=== PATIENT | male | born 1985 | race Caucasian/White ===

== ENCOUNTER 2019-02-20 23:28 | Inpatient (IN) ==
[2019-02-20] MEDS ORDERED: 0.9 % Sodium Chloride 1,000 ML IVC ONE (23:36)
[2019-02-20] MEDS ORDERED: Acetaminophen 325 MG TABLET PO ONE (23:37)
[2019-02-20] MEDS ORDERED: Ketorolac 15 MG/ML VIAL IVP ONE (23:37)
--- NOTE | 2019-02-20 23:40 | Emergency Department Note ---
Disposition Clinical Impression: Dehydration Sepsis Qualifiers: Sepsis type: sepsis due to unspecified organism Qualified Code(s): A41.9 - Sepsis, unspecified organism Leukopenia Qualifiers: Leukopenia type: unspecified Qualified Code(s): D72.819 - Decreased white blood cell count, unspecified Fever Qualifiers: Fever type: unspecified Qualified Code(s): R50.9 - Fever, unspecified Disposition: Admitted As Inpatient Condition: Fair Referrals: Sunita Singh, ADDICTION TREATMENT COUNSELOR [Primary Care Provider] - Forms: ED Satisfaction Letter Time of Disposition: 02:30 Fever HPI - General Chief Complaint: ED Fever Stated Complaint: fever Time Seen by Provider: 02/20/19 23:35 Source: patient, EMS Mode of arrival: ambulatory Limitations: no limitations Nursing Notes Reviewed: Yes Vital Signs Reviewed: Yes - History of Present Illness HPI Narrative: 33-year-old male with a history of cerebral palsy presents for evaluation of fever or malaise. States symptom onset started yesterday. Patient presented via EMS. EMS stated the patient was satting 90-91% on room air. Patient's Noroxin home. Patient denies any chest pain or cough. Patient does state that he has been having dark urine over the past 24 hours. Does have prior history of UTIs. Patient reports some nausea with some abdominal cramping. Patient denies any chest pain. Subjective fevers at home. Denies any current antibiotics with states does have prior history of C. difficile. Mother at bedside confirm history. - Related Data Home Medications Medication Instructions Recorded Confirmed Escitalopram [Lexapro] 30 mg PO DAILY 01/13/17 01/13/17 Methadone 5 mg PO Q12HR 01/13/17 01/13/17 Omeprazole [PriLOSEC] 20 mg PO DAILY 01/13/17 01/13/17 Oxycodone HCl/Acetaminophen 1 each PO Q6H 01/13/17 01/13/17 [Percocet 5-325 mg Tablet] Testosterone [Androgel] 2.5 gm TD DAILY 01/13/17 01/13/17 Tizanidine HCl [Zanaflex] 4 mg PO TID 01/13/17 01/13/17 Allergies Allergy/AdvReac Type Severity Reaction Status Date / Time meperidine [From Demerol] Allergy Nausea Verified 02/20/19 23:36 morphine Allergy Hives Verified 02/20/19 23:36 Penicillins [PCN] Allergy Hives Verified 02/20/19 23:36 pregabalin [From Lyrica] Allergy Hives Verified 02/20/19 23:36 Sulfa (Sulfonamide Allergy Hives Verified 02/20/19 23:36 Antibiotics) All systems ED: reviewed and negative except as stated. Constitutional: Reports: fever Cardiovascular: Denies: chest pain Respiratory: Denies: cough, dyspnea Gastrointestinal: Reports: abdominal pain, nausea, vomiting. Denies: diarrhea Fever PMH - Past Medical History Medical history: Reports: asthma, seizures, other Psychiatric history: Reports: depression - Social History Smoking Status: Never smoker Alcohol use: Reports: none Drug use: Reports: none Physical Exam - General Limitations: no limitations, other General appearance: alert, in no apparent distress - Head Head exam: atraumatic - Eye Eye exam: Present: normal appearance, PERRL, EOMI. Absent: scleral icterus - ENT ENT exam: mucous membranes dry - Neck Neck exam: Present: normal inspection - Chest Chest inspection: Present: normal inspection, symmetric chest wall rise - Respiratory Respiratory exam: Present: other (Poor inspiratory effort). Absent: respiratory distress - Cardiovascular Cardiovascular exam: Present: normal rhythm, tachycardia. Absent: normal heart sounds - Abdominal Exam Abdominal exam: Present: soft, Non-Tender. Absent: distention, guarding, rebound - Extremities Exam Extremities exam: Present: other (Contractures of the extremities consistent with cerebral palsy.) - Expanded Lower Extremity Exam Neurovascular/Tendon exam: Present: normal capillary refill - Back Exam Back exam: Present: normal inspection - Neurological Exam Neurological exam: Present: alert, oriented X3, CN II-XII intact - Skin Skin exam: Present: warm, dry, intact, normal color Course Course Narrative: Patient does meet SIRS criteria concerns of infection either in the lungs or in the urine does have prior history of UTIs. Patient does not self catheter. Patient will get IV fluids and anti-inflammatories and evaluation. Disposition likely be admission. - Reevaluation(s) Reevaluation #1: Patient's HR is responding to IVFs Time: 00:34 Reevaluation #2: Given the patient's fever with neutropenia the patient was covered empirically with Rocephin. Patient's urine does not show any evidence of nitrates or esterase. Patient's urine will be cultured. Patient will also get a CT scan of the abdomen pelvis to find a potential source of the infection. Time: 01:11 Reevaluation #3: Patient seen and examined. Patient ED course as discussed. Patient as well as patient's family was notified of the patient's abnormal labs which included a low white count. Patient CT scan results reviewed shows urinary bladder thickening. Patient was treated empirically with Rocephin and urine culture pending. Patient's vitals improved during the ED course. Time: 02:29 Vital Signs Temperature 103.2 F H 02/20/19 23:30 Pulse Rate 130 02/20/19 23:30 Respiratory Rate 20 02/20/19 23:30 Blood Pressure 128/72 02/20/19 23:30 O2 Sat by Pulse Oximetry 95 02/20/19 23:30 Temperature 98.6 F 02/21/19 02:08 Pulse Rate 99 02/21/19 02:08 Respiratory Rate 16 02/21/19 02:08 Blood Pressure 108/67 02/21/19 02:08 O2 Sat by Pulse Oximetry 97 02/21/19 02:08 Oxygen Delivery Oxygen Delivery Nasal Cannula Fever - MDM Narrative Medical decision making narrative: Patient presented for concerns of fever. Patient had a couple potential source of the fever with initial abnormal vitals concerning for sepsis. Patient was tachycardic febrile. Patient describing dark clots rated urine. Patient's also requiring oxygen. Chest x-ray shows no acute findings. Patient also denies any cough. Patient's urine shows signs of dehydration without any evidence of UTI. Patient urine will be cultured. Given the patient's initial labs which showed severe neutropenia the patient was given an empiric dose of Rocephin as there was concerns for initial UTI. Patient's labs showed mild dehydration. Patient was given 30 mL per KG fluid bolus. Patient was also given phosphorus supplementation. Blood cultures obtained. Given no clear identifiable source a CT scan of the abdomen pelvis was obtained. - Lab Data Lab results reviewed: Yes I reviewed the patient's lab results. Result diagrams: 02/20/19 23:36 02/20/19 23:36 Lab Results 02/20/19 02/20/19 02/20/19 Range/Units 23:36 23:36 23:36 WBC 1.5 L (4.3-11.1) K/mcL RBC 4.62 (4.19-5.50) M/mcL Hgb 12.9 (12.9-16.9) g/dL Hct 38.6 (37.5-50.1) % MCV 83.5 (83.0-100.0) fL MCH 27.9 L (28.0-33.3) pg MCHC 33.4 (31.6-35.5) g/dL RDW 13.2 (11.5-14.5) % Plt Count 236 (140-400) K/mcL MPV 8.7 L (9.4-12.4) fL Immature Gran % 0.0 (0-4) % Seg Neutrophils % 4.8 % Lymphocytes % 27.2 % Monocytes % 67.3 % Eosinophils % 0.0 % Basophils % 0.7 % Neutrophils # 0.1 L (1.6-8.9) K/mcL Lymphocytes # 0.4 L (0.6-4.6) K/mcL Monocytes # 1.0 (0.0-1.3) K/mcL Eosinophils # 0.0 (0.0-0.6) K/mcL Basophils # 0.0 (0.0-0.2) K/mcL Reactive Lymphocytes Present A (Not Present) Platelet Estimate Normal (Normal) PT 13.2 H (9.4-12.1) Seconds INR 1.2 APTT 37.6 H (26.0-36.0) Seconds Sodium 135 L (136-145) mEq/L Potassium 3.8 (3.5-5.1) mEq/L Chloride 99 (98-107) mEq/L Carbon Dioxide 24 (23-29) mEq/L BUN 13 (6-20) mg/dL Creatinine 0.46 L (0.70-1.30) mg/dL Est GFR ( Amer) > 60 (> 60) Est GFR (Non-Af Amer) > 60 (> 60) BUN/Creatinine Ratio 28 H (6-26) Glucose 140 H (70-105) mg/dL Calculated Osmolality 282 (280-300) Lactic Acid (0.5-2.2) mmol/L Calcium 9.4 (8.6-10.3) mg/dL Phosphorus 1.1 L (2.7-4.5) mg/dL Magnesium 1.8 (1.6-2.6) mg/dL Total Bilirubin 1.4 H (0.3-1.0) mg/dL Direct Bilirubin 0.3 H (0.0-0.2) mg/dL Indirect Bilirubin 1.1 (0.0-1.2) mg/dL AST 15 (13-39) Units/L ALT 15 (7-52) Units/L Alkaline Phosphatase 67 (34-104) Units/L Troponin I < 0.03 (< 0.04) ng/mL Serum Total Protein 7.1 (6.4-8.9) g/dL Albumin 4.3 (3.5-5.7) g/dL Globulin 2.8 (2.4-3.5) g/dL Albumin/Globulin Ratio 1.5 (1.1-2.2) Lipase 10 L (11-82) Units/L Urine Color (Yellow) Urine Clarity (Clear) Urine pH (5.0-8.0) pH Units Ur Specific [place] (1.010-1.025) Urine Protein (Neg-Trace) mg/dL Urine Glucose (UA) (Normal) mg/dL Urine Ketones (Negative) mg/dL Urine Blood (Negative) Urine Nitrite (Negative) Urine Bilirubin (Negative) Urine Urobilinogen (Normal) mg/dL Ur Leukocyte Esterase (Negative) Urine Microscopic RBC (0-3) per hpf Urine Microscopic WBC (0-3) per hpf Ur Squamous Epith Cells (None-Few) per lpf Urine Bacteria (None-Few) per hpf Hyaline Casts (None-Few) per lpf Urine Yeast (None Seen) per hpf Ur Culture Indicated? (NO) 02/20/19 02/21/19 Range/Units 23:45 00:47 WBC (4.3-11.1) K/mcL RBC (4.19-5.50) M/mcL Hgb (12.9-16.9) g/dL Hct (37.5-50.1) % MCV (83.0-100.0) fL MCH (28.0-33.3) pg MCHC (31.6-35.5) g/dL RDW (11.5-14.5) % Plt Count (140-400) K/mcL MPV (9.4-12.4) fL Immature Gran % (0-4) % Seg Neutrophils % % Lymphocytes % % Monocytes % % Eosinophils % % Basophils % % Neutrophils # (1.6-8.9) K/mcL Lymphocytes # (0.6-4.6) K/mcL Monocytes # (0.0-1.3) K/mcL Eosinophils # (0.0-0.6) K/mcL Basophils # (0.0-0.2) K/mcL Reactive Lymphocytes (Not Present) Platelet Estimate (Normal) PT (9.4-12.1) Seconds INR APTT (26.0-36.0) Seconds Sodium (136-145) mEq/L Potassium (3.5-5.1) mEq/L Chloride (98-107) mEq/L Carbon Dioxide (23-29) mEq/L BUN (6-20) mg/dL Creatinine (0.70-1.30) mg/dL Est GFR ( Amer) (> 60) Est GFR (Non-Af Amer) (> 60) BUN/Creatinine Ratio (6-26) Glucose (70-105) mg/dL Calculated Osmolality (280-300) Lactic Acid 1.1 (0.5-2.2) mmol/L Calcium (8.6-10.3) mg/dL Phosphorus (2.7-4.5) mg/dL Magnesium (1.6-2.6) mg/dL Total Bilirubin (0.3-1.0) mg/dL Direct Bilirubin (0.0-0.2) mg/dL Indirect Bilirubin (0.0-1.2) mg/dL AST (13-39) Units/L ALT (7-52) Units/L Alkaline Phosphatase (34-104) Units/L Troponin I (< 0.04) ng/mL Serum Total Protein (6.4-8.9) g/dL Albumin (3.5-5.7) g/dL Globulin (2.4-3.5) g/dL Albumin/Globulin Ratio (1.1-2.2) Lipase (11-82) Units/L Urine Color Dark Yellow (Yellow) Urine Clarity Clear (Clear) Urine pH 5.5 (5.0-8.0) pH Units Ur Specific [place] > 1.030 H (1.010-1.025) Urine Protein 100 H (Neg-Trace) mg/dL Urine Glucose (UA) Normal (Normal) mg/dL Urine Ketones 80 H (Negative) mg/dL Urine Blood Moderate H (Negative) Urine Nitrite Negative (Negative) Urine Bilirubin Moderate H (Negative) Urine Urobilinogen Normal (Normal) mg/dL Ur Leukocyte Esterase Negative (Negative) Urine Microscopic RBC 5-15 H (0-3) per hpf Urine Microscopic WBC 0-3 (0-3) per hpf Ur Squamous Epith Cells Many H (None-Few) per lpf Urine Bacteria Few (None-Few) per hpf Hyaline Casts None Seen (None-Few) per lpf Urine Yeast Few H (None Seen) per hpf Ur Culture Indicated? YES A (NO) - Radiology Data Radiology results reviewed: Yes I reviewed the patient's radiology results. Chest X-Ray 02/21/19 00:00 IMPRESSION: No acute disease. D/ / Monroe Ahn MD / Monroe Ahn MD Interpreting Provider: Monroe Ahn MD Abdomen/Pelvis CT 02/21/19 01:07 IMPRESSION: 1. Possible seminal vesiculitis. 2. Diffuse bladder wall thickening may represent neurogenic bladder, cystitis, or outlet obstruction. D/ / Monroe Ahn MD / Monroe Ahn MD Interpreting Provider: Monroe Ahn MD - EKG Data EKG attestation: Yes I reviewed and interpreted this EKG. EKG shows normal: sinus rhythm Rate: tachycardia Rhythm: NSR [place]/QRS: normal Interpretation: no acute changes, nonspecific ST-T wave changes S.B.A.RSandra - S.B.ALuz Elena Situation: Demographics Background: Presenting Complaint Assessment: Vital Signs, Course and respsone to treatment, Patient/Family Exp ectation Recommendation: Barrier(s) to disposition, Recommendation based on pending studies, treatments, or consults S.B.A.RSandra Report Given to: Dr. Andree Wasserman Time: 02:13
--- NOTE | 2019-02-20 23:58 | Emergency Department Note ---
Disposition Clinical Impression: Dehydration Sepsis Qualifiers: Sepsis type: sepsis due to unspecified organism Qualified Code(s): A41.9 - Sepsis, unspecified organism Leukopenia Qualifiers: Leukopenia type: unspecified Qualified Code(s): D72.819 - Decreased white blood cell count, unspecified Fever Qualifiers: Fever type: unspecified Qualified Code(s): R50.9 - Fever, unspecified Disposition: Admitted As Inpatient Condition: Fair Referrals: Sunita Singh, SAMPLER PICKUP [Primary Care Provider] - Forms: ED Satisfaction Letter Time of Disposition: 02:30 General Adult HPI - General Chief complaint: ED Fever Stated complaint: fever Time Seen by Provider: 02/20/19 23:35 Source: patient, EMS Mode of arrival: ambulatory Limitations: no limitations, other Nursing Notes Reviewed: Yes Vital Signs Reviewed: Yes - History of Present Illness Pain Scale: 6 - Related Data Home Medications Medication Instructions Recorded Confirmed Escitalopram [Lexapro] 30 mg PO DAILY 01/13/17 02/21/19 Methadone 5 mg PO Q12HR 01/13/17 02/21/19 Omeprazole [PriLOSEC] 20 mg PO DAILY 01/13/17 02/21/19 Oxycodone HCl/Acetaminophen 1 each PO Q8H 01/13/17 02/21/19 [Percocet 5-325 mg Tablet] Testosterone [Androgel] 2.5 gm TD DAILY 01/13/17 01/13/17 Chlorzoxazone 500 mg PO Q6HR 02/21/19 02/21/19 Allergies Allergy/AdvReac Type Severity Reaction Status Date / Time meperidine [From Demerol] Allergy Nausea Verified 02/20/19 23:36 morphine Allergy Hives Verified 02/20/19 23:36 Penicillins [PCN] Allergy Hives Verified 02/20/19 23:36 pregabalin [From Lyrica] Allergy Hives Verified 02/20/19 23:36 Sulfa (Sulfonamide Allergy Hives Verified 02/20/19 23:36 Antibiotics) Constitutional: Reports: fever Cardiovascular: Denies: chest pain Respiratory: Denies: cough, dyspnea Gastrointestinal: Reports: abdominal pain, nausea, vomiting. Denies: diarrhea Past Medical History - Past Medical History Medical history: Reports: asthma, seizures, other Psychiatric history: Reports: depression - Social History Smoking Status: Never smoker Smokeless Tobacco Status: No Alcohol use: Reports: none Drug use: Reports: none Physical Exam - General Limitations: no limitations, other General appearance: alert, in no apparent distress Course Vital Signs Temperature 103.2 F H 02/20/19 23:30 Pulse Rate 130 02/20/19 23:30 Respiratory Rate 20 02/20/19 23:30 Blood Pressure 128/72 02/20/19 23:30 O2 Sat by Pulse Oximetry 95 02/20/19 23:30 Temperature 98.6 F 02/21/19 02:08 Pulse Rate 99 02/21/19 02:08 Respiratory Rate 16 02/21/19 02:08 Blood Pressure 108/67 02/21/19 02:08 O2 Sat by Pulse Oximetry 97 02/21/19 02:08 Oxygen Delivery Oxygen Delivery Nasal Cannula Medical Decision Making - Lab Data Lab results reviewed: Yes I reviewed the patient's lab results. Result diagrams: 02/20/19 23:36 02/20/19 23:36 Lab Results 02/20/19 02/20/19 02/20/19 Range/Units 23:36 23:36 23:36 WBC 1.5 L (4.3-11.1) K/mcL RBC 4.62 (4.19-5.50) M/mcL Hgb 12.9 (12.9-16.9) g/dL Hct 38.6 (37.5-50.1) % MCV 83.5 (83.0-100.0) fL MCH 27.9 L (28.0-33.3) pg MCHC 33.4 (31.6-35.5) g/dL RDW 13.2 (11.5-14.5) % Plt Count 236 (140-400) K/mcL MPV 8.7 L (9.4-12.4) fL Immature Gran % 0.0 (0-4) % Seg Neutrophils % 4.8 % Lymphocytes % 27.2 % Monocytes % 67.3 % Eosinophils % 0.0 % Basophils % 0.7 % Neutrophils # 0.1 L (1.6-8.9) K/mcL Lymphocytes # 0.4 L (0.6-4.6) K/mcL Monocytes # 1.0 (0.0-1.3) K/mcL Eosinophils # 0.0 (0.0-0.6) K/mcL Basophils # 0.0 (0.0-0.2) K/mcL Reactive Lymphocytes Present A (Not Present) Platelet Estimate Normal (Normal) PT 13.2 H (9.4-12.1) Seconds INR 1.2 APTT 37.6 H (26.0-36.0) Seconds Sodium 135 L (136-145) mEq/L Potassium 3.8 (3.5-5.1) mEq/L Chloride 99 (98-107) mEq/L Carbon Dioxide 24 (23-29) mEq/L BUN 13 (6-20) mg/dL Creatinine 0.46 L (0.70-1.30) mg/dL Est GFR ( Amer) > 60 (> 60) Est GFR (Non-Af Amer) > 60 (> 60) BUN/Creatinine Ratio 28 H (6-26) Glucose 140 H (70-105) mg/dL Calculated Osmolality 282 (280-300) Lactic Acid (0.5-2.2) mmol/L Calcium 9.4 (8.6-10.3) mg/dL Phosphorus 1.1 L (2.7-4.5) mg/dL Magnesium 1.8 (1.6-2.6) mg/dL Total Bilirubin 1.4 H (0.3-1.0) mg/dL Direct Bilirubin 0.3 H (0.0-0.2) mg/dL Indirect Bilirubin 1.1 (0.0-1.2) mg/dL AST 15 (13-39) Units/L ALT 15 (7-52) Units/L Alkaline Phosphatase 67 (34-104) Units/L Troponin I < 0.03 (< 0.04) ng/mL Serum Total Protein 7.1 (6.4-8.9) g/dL Albumin 4.3 (3.5-5.7) g/dL Globulin 2.8 (2.4-3.5) g/dL Albumin/Globulin Ratio 1.5 (1.1-2.2) Lipase 10 L (11-82) Units/L Urine Color (Yellow) Urine Clarity (Clear) Urine pH (5.0-8.0) pH Units Ur Specific [place] (1.010-1.025) Urine Protein (Neg-Trace) mg/dL Urine Glucose (UA) (Normal) mg/dL Urine Ketones (Negative) mg/dL Urine Blood (Negative) Urine Nitrite (Negative) Urine Bilirubin (Negative) Urine Urobilinogen (Normal) mg/dL Ur Leukocyte Esterase (Negative) Urine Microscopic RBC (0-3) per hpf Urine Microscopic WBC (0-3) per hpf Ur Squamous Epith Cells (None-Few) per lpf Urine Bacteria (None-Few) per hpf Hyaline Casts (None-Few) per lpf Urine Yeast (None Seen) per hpf Ur Culture Indicated? (NO) 02/20/19 02/21/19 Range/Units 23:45 00:47 WBC (4.3-11.1) K/mcL RBC (4.19-5.50) M/mcL Hgb (12.9-16.9) g/dL Hct (37.5-50.1) % MCV (83.0-100.0) fL MCH (28.0-33.3) pg MCHC (31.6-35.5) g/dL RDW (11.5-14.5) % Plt Count (140-400) K/mcL MPV (9.4-12.4) fL Immature Gran % (0-4) % Seg Neutrophils % % Lymphocytes % % Monocytes % % Eosinophils % % Basophils % % Neutrophils # (1.6-8.9) K/mcL Lymphocytes # (0.6-4.6) K/mcL Monocytes # (0.0-1.3) K/mcL Eosinophils # (0.0-0.6) K/mcL Basophils # (0.0-0.2) K/mcL Reactive Lymphocytes (Not Present) Platelet Estimate (Normal) PT (9.4-12.1) Seconds INR APTT (26.0-36.0) Seconds Sodium (136-145) mEq/L Potassium (3.5-5.1) mEq/L Chloride (98-107) mEq/L Carbon Dioxide (23-29) mEq/L BUN (6-20) mg/dL Creatinine (0.70-1.30) mg/dL Est GFR ( Amer) (> 60) Est GFR (Non-Af Amer) (> 60) BUN/Creatinine Ratio (6-26) Glucose (70-105) mg/dL Calculated Osmolality (280-300) Lactic Acid 1.1 (0.5-2.2) mmol/L Calcium (8.6-10.3) mg/dL Phosphorus (2.7-4.5) mg/dL Magnesium (1.6-2.6) mg/dL Total Bilirubin (0.3-1.0) mg/dL Direct Bilirubin (0.0-0.2) mg/dL Indirect Bilirubin (0.0-1.2) mg/dL AST (13-39) Units/L ALT (7-52) Units/L Alkaline Phosphatase (34-104) Units/L Troponin I (< 0.04) ng/mL Serum Total Protein (6.4-8.9) g/dL Albumin (3.5-5.7) g/dL Globulin (2.4-3.5) g/dL Albumin/Globulin Ratio (1.1-2.2) Lipase (11-82) Units/L Urine Color Dark Yellow (Yellow) Urine Clarity Clear (Clear) Urine pH 5.5 (5.0-8.0) pH Units Ur Specific [place] > 1.030 H (1.010-1.025) Urine Protein 100 H (Neg-Trace) mg/dL Urine Glucose (UA) Normal (Normal) mg/dL Urine Ketones 80 H (Negative) mg/dL Urine Blood Moderate H (Negative) Urine Nitrite Negative (Negative) Urine Bilirubin Moderate H (Negative) Urine Urobilinogen Normal (Normal) mg/dL Ur Leukocyte Esterase Negative (Negative) Urine Microscopic RBC 5-15 H (0-3) per hpf Urine Microscopic WBC 0-3 (0-3) per hpf Ur Squamous Epith Cells Many H (None-Few) per lpf Urine Bacteria Few (None-Few) per hpf Hyaline Casts None Seen (None-Few) per lpf Urine Yeast Few H (None Seen) per hpf Ur Culture Indicated? YES A (NO) - Radiology Data Radiology results reviewed: Yes I reviewed the patient's radiology results. Chest X-Ray 02/21/19 00:00 IMPRESSION: No acute disease. D/ / Monroe Ahn MD / Monroe Ahn MD Interpreting Provider: Monroe Ahn MD Abdomen/Pelvis CT 02/21/19 01:07 IMPRESSION: 1. Possible seminal vesiculitis. 2. Diffuse bladder wall thickening may represent neurogenic bladder, cystitis, or outlet obstruction. D/ / Monroe Ahn MD / Monroe Ahn MD Interpreting Provider: Monroe Ahn MD - EKG Data EKG #1 EKG attestation: Yes I reviewed and interpreted this EKG. EKG results narrative: EKG shows sinus tachycardia with ventricular rate of 123. No ST segment elevation or depression. No arrhythmia or ectopy. Critical Care Time Critical Care Time: Yes Total Critical Care Time: 40 Attestation: Critical care performed: Time is exclusive of separately billable procedures. Time includes: direct patient care, patient reassessment, coordination of patient care, interpretation of data (laboratory data, radiology data, and respiratory data), review of patient's medical records, medical consultation and documentation of patient care. Procedures included in critical care time: Procedures excluded from critical care time: Attestation Statement - Attestation Attestation: I, Andrea Ontiveros MD, personally evaluated this patient and discussed their management with the resident physician. I reviewed the resident's note and agree with the documented findings, medical decision making, and plan of care. I personally supervised and was present for the aviles/critical portions of the following procedures completed by the resident: EKG interpretation. 33-year-old male with history of cerebral palsy presents to the emergency department by EMS with a complaint of very dark urine for the past few days. Since yesterday he has felt like he had a fever with some chills and myalgias and generalized body aches. He complains of just not feeling well. He has had some nausea but no vomiting. Some back pain. Some mild abdominal pain. He states he feels like he may be constipated. He does admit to dysuria. No cough or difficulty breathing. He does complain of some headache. On examination patient is a thin male with contractures who is alert and oriented 3. There is no cyanosis or diaphoresis. He does feel hot to touch. Temperature was 103.2 orally. Breath sounds are clear and equal bilaterally. Heart regular with a moderate tachycardia. Abdomen is soft with present bowel sounds. Some mild diffuse tenderness. No guarding or rebound tenderness. EKG shows sinus tachycardia with ventricular rate of 123. No ST segment elevation or depression. No arrhythmia or ectopy. Labs reviewed. Markedly leukopenia with WBC of 1.5. Marked neutropenia. Platelets and hemoglobin normal. Lactic acid normal. Urinalysis is concentrated consistent with dehydration but no UTI. Chest x-ray negative. CT the abdomen and pelvis was obtained and shows thickening of the bladder wall and possible seminal vesiculitis. Blood cultures obtained. IV antibiotics initiated. The hospitalist, Dr. Candelario, was consulted and accepted admission of the patient.
[2019-02-21] MEDS ORDERED: 0.9 % Sodium Chloride 500 ML IVC ONE
[2019-02-21 00:11] LABS: Basophils % 0.7 %; Hemoglobin 12.9 g/dL (12.9-16.9); Mean Platelet Volume 8.7 fL (9.4-12.4); Red Cell Distribution Width 13.2 % (11.5-14.5)
[2019-02-21 00:14] LABS: Hematocrit 38.6 % (37.5-50.1); Lymphocytes # 0.4 K/mcL (0.6-4.6); Lymphocytes % 27.2 %; Mean Corpuscular HGB Conc 33.4 g/dL (31.6-35.5); Mean Corpuscular Hemoglobin 27.9 pg (28.0-33.3); Mean Corpuscular Volume 83.5 fL (83.0-100.0); Monocytes % 67.3 %; Neutrophils # 0.1 K/mcL (1.6-8.9); Platelet Count 236 K/mcL (140-400); Red Blood Count 4.62 M/mcL (4.19-5.50); Segmented Neutrophils % 4.8 %; White Blood Count 1.5 K/mcL (4.3-11.1)
[2019-02-21 00:18] LABS: INR 1.2; Prothrombin Time 13.2 Seconds (9.4-12.1)
[2019-02-21 00:21] LABS: Activated Partial Thrombo Time 37.6 Seconds (26.0-36.0)
[2019-02-21 00:30] LABS: Alanine Aminotransferase 15 Units/L (7-52); Albumin 4.3 g/dL (3.5-5.7); Albumin/Globulin Ratio 1.5 (1.1-2.2); Alkaline Phosphatase 67 Units/L (34-104); Aspartate Amino Transferase 15 Units/L (13-39); Bilirubin,Direct 0.3 mg/dL (0.0-0.2); Bilirubin,Indirect 1.1 mg/dL (0.0-1.2); Bilirubin,Total 1.4 mg/dL (0.3-1.0); Blood Urea Nitrogen 13 mg/dL (6-20); Calcium 9.4 mg/dL (8.6-10.3); Carbon Dioxide 24 mEq/L (23-29); Chloride 99 mEq/L (98-107); Globulin 2.8 g/dL (2.4-3.5); Glucose 140 mg/dL (70-105); Lipase 10 Units/L (11-82); Magnesium 1.8 mg/dL (1.6-2.6); Osmolality,Calculated 282 (280-300); Phosphorous 1.1 mg/dL (2.7-4.5); Potassium 3.8 mEq/L (3.5-5.1); Sodium 135 mEq/L (136-145); Total Protein 7.1 g/dL (6.4-8.9)
[2019-02-21 00:31] LABS: Troponin I < 0.03 ng/mL (< 0.04)
[2019-02-21 00:34] LABS: Platelet Estimate Normal (Normal); Reactive Lymphocytes Present (Not Present)
[2019-02-21] MEDS ORDERED: cefTRIAXone 1,000 MG in Water for inj. (sterile) 10 ML IVP ONE (00:36)
[2019-02-21 00:57] LABS: Bilirubin,Urine Moderate (Negative); Blood,Urine Moderate (Negative); Clarity,Urine Clear (Clear); Color,Urine Dark Yellow (Yellow); Glucose,Urine (UA) Normal (Normal); Ketones,Urine 80 mg/dL (Negative); Leukocyte Esterase,Urine Negative (Negative); Nitrite,Urine Negative (Negative); PH,Urine 5.5 pH Units (5.0-8.0); Protein,Urine 100 mg/dL (Neg-Trace); Specific Gravity,Urine > 1.030 (1.010-1.025); Urobilinogen,Urine Normal (Normal)
[2019-02-21 00:58] LABS: BUN/Creatinine Ratio 28 (6-26); eGFR For African Americans > 60 (> 60); eGFR For Non-African Americans > 60 (> 60)
[2019-02-21 00:59] LABS: Hyaline Casts,Urine None Seen per lpf (None-Few); Squamous Epithelial Cell,Urine Many per lpf (None-Few); WBC,Urine 0-3 per hpf (0-3)
[2019-02-21] MEDS ORDERED: Isovue-370 500 ML BOTTLE IVP ONE (01:07)
[2019-02-21 01:15] LABS: Bacteria,Urine Few per hpf (None-Few); Yeast,Urine Few per hpf (None Seen)
[2019-02-21] MEDS ORDERED: *HR* OxyCODONE/APAP 5/325 TABLET PO ONE (02:43)
[2019-02-21] MEDS ORDERED: Naloxone 0.4 MG/ML INJ IVP PRN (03:45)
--- NOTE | 2019-02-21 04:22 | Internal Med History&Physical ---
<Zay Thomson - Last Filed: 02/21/19 05:19> Date of Encounter: 02/21/19 Time of Encounter: 03:30 Internal Medicine - H&P: HPI Chief complaint: Fever Admitted From: Emergency Dept Plans for Post Hospital Care: Home History of present illness: Mr. Benites is a 33 year old male with PMHx of cerebral palsy, asthma, seizures, depression who presents to ED with complaint of fevers. Patient had a fever of 104.6 at home, checked by his mother. He admits to 3 days of dark urine with some burning on urination, nausea, and generalized body aches. Vitals in ED were significant for fever of 103.2, tachycardia of 130, tachypnea of 20, he was saturating at 95% on room air. Labs significant for leukopenia of 1.5, phosphorous of 1.1, and mildly elevated T. bili of 1.4. UA showed protein, blood, ketones, bilirubin, yeast, and few bacteria, but negative for leukocyte esterase and nitrites. CXR showed no acute process. Patient received CT ab/pelvis because source of infection wasn't clear, which showed bladder wall thickening (cystitis vs neurogenic bladder vs outlet obstruction) and possible seminal vesiculitis. EKG showed sinus tachycardia without ST elevation or depression. Patient had blood cultures x2 drawn and was given 1500 ml NS and a dose of rochephin. His vitals normalized to temp of 98.6, HR of 99, and RR of 16. Patient is resting comfortably on my exam and complains of some mild nausea. He denies vomiting. He admits to symptoms of dark urine, burning with urination, generalized body aches, mild headache over the past few days. His symptoms are improved. Patient denies chest pain, shortness of breath, cough, abdominal pain, numbness/tingling, changes in bowel habits. He denies sick contacts and did get his flu vaccine this year. He has had UTIs in the past, and admits to occasional difficulty with urination. He also has a history of C. diff, but is not currently on any antibiotics and is not experiencing any diarrhea. He denies history of smoking, alcohol, and drug use. Past Med Surg Social Fam HX - Past Medical History Medical history: asthma, seizures, other Additional medical history: CP Psychiatric history: depression - Past Surgical History Additional surgical history: spinal fusions, hip surgeries - Social History Smoking Status: Never smoker Smokeless Tobacco Status: No Alcohol use: none Drug use: none Internal Medicine - H&P: Meds Escitalopram [Lexapro] 30 mg PO DAILY 01/13/17 [History] Methadone 5 mg PO Q12HR 01/13/17 [History] Omeprazole [PriLOSEC] 20 mg PO DAILY 01/13/17 [History] Oxycodone HCl/Acetaminophen [Percocet 5-325 mg Tablet] 1 each PO Q8H 01/13/17 [History] Testosterone [Androgel] 2.5 gm TD DAILY 01/13/17 [History] Chlorzoxazone 500 mg PO Q6HR 02/21/19 [History] Allergy/AdvReac Type Severity Reaction Status Date / Time meperidine [From Demerol] Allergy Nausea Verified 02/20/19 23:36 morphine Allergy Hives Verified 02/20/19 23:36 Penicillins [PCN] Allergy Hives Verified 02/20/19 23:36 pregabalin [From Lyrica] Allergy Hives Verified 02/20/19 23:36 Sulfa (Sulfonamide Allergy Hives Verified 02/20/19 23:36 Antibiotics) All Systems PM: A 10-system review of systems was performed and is negative for pertinent findings except as documented above in the HPI. - Constitutional Vitals: Temp Pulse Resp BP Pulse Ox 98.8 F 99 16 110/65 97 02/21/19 03:13 02/21/19 02:08 02/21/19 03:13 02/21/19 03:13 02/21/19 02:08 General appearance: Present: cachectic, A&O X 3, pleasant, no acute distress Exam: Patient is resting in bed with several contractures of extremities, in no acute distress. - Eye Eye exam: Absent: conjunctival injection, scleral icterus - Respiratory Respiratory exam: Present: CTAB - Cardiovascular Cardiovascular exam: Present: tachycardia Additional comments: Regular rhythm - GI/Abdominal GI/Abdominal exam: Present: distended (mild), normal bowel sounds, soft, no peritoneal signs. Absent: tenderness - Extremities Exam Extremities exam: Present: normal capillary refill, warm, radial pulses palpable and symmetrical. Absent: mottling, pedal edema, tenderness Additional comments: diminished muscle tone with some contracture in UE and LE - Neurological Exam Neurological exam: Present: alert, oriented X3. Absent: facial droop - Psychiatric Psychiatric exam: Present: normal affect, normal mood - Skin Skin exam: Present: dry, warm Internal Med - H&P Results - Labs CBC & Chem 7: 02/20/19 23:36 02/20/19 23:36 Labs: Short CBC 02/20/19 Range/Units 23:36 WBC 1.5 L (4.3-11.1) K/mcL Hgb 12.9 (12.9-16.9) g/dL Hct 38.6 (37.5-50.1) % Plt Count 236 (140-400) K/mcL Neutrophils # 0.1 L (1.6-8.9) K/mcL BMP 02/20/19 23:36 Sodium 135 L Potassium 3.8 Chloride 99 Carbon Dioxide 24 BUN 13 Creatinine 0.46 L Glucose 140 H Calcium 9.4 Cardiac Enzymes 02/20/19 Range/Units 23:36 Troponin I < 0.03 (< 0.04) ng/mL Liver Function 02/20/19 Range/Units 23:36 Total Bilirubin 1.4 H (0.3-1.0) mg/dL Direct Bilirubin 0.3 H (0.0-0.2) mg/dL AST 15 (13-39) Units/L ALT 15 (7-52) Units/L Alkaline Phosphatase 67 (34-104) Units/L Albumin 4.3 (3.5-5.7) g/dL Urine 02/21/19 Range/Units 00:47 Urine Color Dark Yellow (Yellow) Urine Clarity Clear (Clear) Urine pH 5.5 (5.0-8.0) pH Units Ur Specific [place] > 1.030 H (1.010-1.025) Urine Protein 100 H (Neg-Trace) mg/dL Urine Glucose (UA) Normal (Normal) mg/dL - Impressions ITS Impressions Chest X-Ray 02/21/19 00:00 IMPRESSION: No acute disease. D/ / Monroe Ahn MD / Monroe Ahn MD Interpreting Provider: Monroe Ahn MD Abdomen/Pelvis CT 02/21/19 01:07 IMPRESSION: 1. Possible seminal vesiculitis. 2. Diffuse bladder wall thickening may represent neurogenic bladder, cystitis, or outlet obstruction. D/ / Monroe Ahn MD / Monroe Ahn MD Interpreting Provider: Monroe Ahn MD - Assessment and Plan (1) Sepsis Current Visit: Yes Status: Acute Assessment and plan: Fever of 103.2, HR 130, RR 20 WBC 1.5 Lactic acid normal EKG showed sinus tachycardia with no evidence of ST elevation or depression UA shows protein, ketones, blood, bilirubin, yeast, and few bacteria, with specific gravity >1.03 CXR shows no acute process Abdomen/pelvis CT shows bladder wall thickening (cystitis vs outlet obstruction vs neurogenic bladder) and possible seminal vesiculitis Received 1500 ml normal saline in ED and a dose of rocephin Vitals normalized to temp of 98.6, HR 99, RR 16 Procalcitonin Repeat CBC and BMP Flu swab Urine culture pending Blood cultures pending Maintenance fluids at 75 ml/hr for dehydration Continue rocephin daily, may need to broaden coverage if patient continues to spike fevers Qualifiers: Sepsis type: sepsis due to unspecified organism Qualified Code(s): A41.9 - Sepsis, unspecified organism (2) Complicated UTI (urinary tract infection) Current Visit: Yes Status: Acute Assessment and plan: Suspected with dysuria for past 3 days and fever of 103.2 Patient has history of UTIs in past and has neurogenic bladder CT abdomen/pelvis shows bladder wall thickening and possible seminal vesiculitis UA shows protein, ketones, blood, bilirubin, yeast, and few bacteria; however no leukocyte esterase or nitrites Urine culture pending Rocephin daily (3) Leukopenia Current Visit: Yes Status: Acute Assessment and plan: WBC of 1.5 Fever initially of 103.2 Patient with complaints of burning with urination, nausea, generalized weakness CXR unremarkable CT abdomen/pelvis showed bladder wall thickening and possible seminal vesiculitis Patient given dose of Rocephin since he met sepsis criteria Will repeat CBC in AM Unclear etiology at this time Qualifiers: Leukopenia type: unspecified Qualified Code(s): D72.819 - Decreased white blood cell count, unspecified (4) Nausea Current Visit: Yes Status: Acute Assessment and plan: Patient with nausea for the past 3 days, no vomiting or changes from baseline bowel habits CT abdomen pelvis shows bladder wall thickening and possible seminal vesiculitis Phenergan PRN (5) Dehydration Current Visit: Yes Status: Acute Assessment and plan: HR of 130 on arrival UA with specific gravity >1.03 Patient received 1.5 liters of fluid in ED, HR normalized to 99 Started maintenance fluid of 75 ml/hr (6) Cerebral palsy Current Visit: Yes Status: Chronic Assessment and plan: Resume home medications Qualifiers: Cerebral palsy type: unspecified type Qualified Code(s): G80.9 - Cerebral palsy, unspecified (7) GERD (gastroesophageal reflux disease) Current Visit: Yes Status: Chronic Assessment and plan: Continue home medications Qualifiers: Esophagitis presence: esophagitis presence not specified Qualified Code(s): K21.9 - Gastro-esophageal reflux disease without esophagitis (8) Depression Current Visit: Yes Status: Chronic Assessment and plan: Normal mood and affect on my exam, no suicidal ideation Continue home medication Qualifiers: Depression Type: unspecified Qualified Code(s): F32.9 - Major depressive disorder, single episode, unspecified (9) DVT prophylaxis Current Visit: Yes Status: Acute Assessment and plan: Subcutaneous heparin (10) Hypophosphatemia Current Visit: Yes Status: Acute Assessment and plan: Phosphorous 1.1 on admission Replaced in ED Repeat phosphorous in AM - Time Spent With Patient Total time spent is greater than 50% in coordination of care (as documented) at patient's floor/unit and/or counseling patient: <Salma Bourgeois A - Last Filed: 02/21/19 06:40> Date of Encounter: 02/21/19 Internal Medicine - H&P: HPI History of present illness: Mr. Benites is a 33 year old male All Systems PM: A 10-system review of systems was performed and is negative for pertinent findings except as documented above in the HPI. - Constitutional Vitals: Temp Pulse Resp BP Pulse Ox 98.5 F 102 18 105/66 93 02/21/19 04:20 02/21/19 04:20 02/21/19 04:20 02/21/19 04:20 02/21/19 04:20 Internal Med - H&P Results - Labs CBC & Chem 7: 02/21/19 05:03 02/21/19 05:03 Labs: Short CBC 02/20/19 02/21/19 Range/Units 23:36 05:03 WBC 1.5 L 2.2 L (4.3-11.1) K/mcL Hgb 12.9 11.8 L (12.9-16.9) g/dL Hct 38.6 34.8 L (37.5-50.1) % Plt Count 236 221 (140-400) K/mcL Neutrophils # 0.1 L 0.0 L (1.6-8.9) K/mcL BMP 02/20/19 02/21/19 23:36 05:03 Sodium 135 L 139 Potassium 3.8 3.6 Chloride 99 104 Carbon Dioxide 24 21 L BUN 13 9 Creatinine 0.46 L 0.47 L Glucose 140 H 136 H Calcium 9.4 8.5 L Cardiac Enzymes 02/20/19 Range/Units 23:36 Troponin I < 0.03 (< 0.04) ng/mL Liver Function 02/20/19 Range/Units 23:36 Total Bilirubin 1.4 H (0.3-1.0) mg/dL Direct Bilirubin 0.3 H (0.0-0.2) mg/dL AST 15 (13-39) Units/L ALT 15 (7-52) Units/L Alkaline Phosphatase 67 (34-104) Units/L Albumin 4.3 (3.5-5.7) g/dL Urine 02/21/19 Range/Units 00:47 Urine Color Dark Yellow (Yellow) Urine Clarity Clear (Clear) Urine pH 5.5 (5.0-8.0) pH Units Ur Specific [place] > 1.030 H (1.010-1.025) Urine Protein 100 H (Neg-Trace) mg/dL Urine Glucose (UA) Normal (Normal) mg/dL - Impressions ITS Impressions Chest X-Ray 02/21/19 00:00 IMPRESSION: No acute disease. D/ / Monroe Ahn MD / Monroe Ahn MD Interpreting Provider: Monroe Ahn MD Abdomen/Pelvis CT 02/21/19 01:07 IMPRESSION: 1. Possible seminal vesiculitis. 2. Diffuse bladder wall thickening may represent neurogenic bladder, cystitis, or outlet obstruction. D/ / Monroe Ahn MD / Monroe Ahn MD Interpreting Provider: Monroe Ahn MD - Assessment and Plan (1) Sepsis Current Visit: Yes Status: Acute Qualifiers: Sepsis type: sepsis due to unspecified organism Qualified Code(s): A41.9 - Sepsis, unspecified organism (2) Leukopenia Current Visit: Yes Status: Acute Qualifiers: Leukopenia type: unspecified Qualified Code(s): D72.819 - Decreased white blood cell count, unspecified (3) Dehydration Current Visit: Yes Status: Acute (4) Nausea Current Visit: Yes Status: Acute (5) DVT prophylaxis Current Visit: Yes Status: Acute (6) Depression Current Visit: Yes Status: Chronic Qualifiers: Depression Type: unspecified Qualified Code(s): F32.9 - Major depressive disorder, single episode, unspecified (7) Cerebral palsy Current Visit: Yes Status: Chronic Qualifiers: Cerebral palsy type: unspecified type Qualified Code(s): G80.9 - Cerebral palsy, unspecified (8) GERD (gastroesophageal reflux disease) Current Visit: Yes Status: Chronic Qualifiers: Esophagitis presence: esophagitis presence not specified Qualified Code(s): K21.9 - Gastro-esophageal reflux disease without esophagitis (9) Complicated UTI (urinary tract infection) Current Visit: Yes Status: Acute (10) Hypophosphatemia Current Visit: Yes Status: Acute - Time Spent With Patient Total time spent is greater than 50% in coordination of care (as documented) at patient's floor/unit and/or counseling patient: - Attending Attestation I performed a history and physical examination of the patient and discussed his management with the resident. I reviewed the resident's note and agree with the assessment and plan of care. In short patient is a pleasant 33-year-old male with a past medical history of cerebral palsy, asthma, seizures and depression who presented to the ED with complaint of fevers of 104.6 in the setting of dysuria and dark urine. Patient did meet sepsis criteria on presentation and was found to be tachycardic with a heart rate in the 130s, febrile with a temperature of 103.2 and leukopenic; but otherwise hemodynamically stable. UA was obtained which did not show any evidence of nitrites or leukocyte esterase. A CT of the abdomen and pelvis was performed which showed bladder wall thickening and possible seminal vesiculitis. On my assessment patient was lying in bed in no acute distress. He reported he was feeling much better. There was some suprapubic tenderness on palpation as well as evidence of skin irritation around patient's PEG tube site without evidence of purulence. No evidence of murmur. Patient did report a headache earlier which has resolved. Denies any neck stiffness or photophobia nor was there any neck stiffness on examination. Urine and blood cultures were obtained. We will continue Rocephin for UTI.
[2019-02-21] MEDS: *HR* OxyCODONE/APAP 5/325 TABLET PO SCH ×3 (04:57→19:14)
[2019-02-21] MEDS: *HR* Heparin 5,000 UNIT/ML VIAL SQ SCH ×2 (05:06→17:00)
[2019-02-21] MEDS: 0.9 % Sodium Chloride 1,000 ML IVC SCH ×2 (05:06→17:03)
[2019-02-21 05:18] LABS: Basophils % 0.5 %; Hematocrit 34.8 % (37.5-50.1); Hemoglobin 11.8 g/dL (12.9-16.9); Immature Granulocytes % 0.5 % (0-4); Lymphocytes # 0.5 K/mcL (0.6-4.6); Lymphocytes % 22.8 %; Mean Corpuscular HGB Conc 33.9 g/dL (31.6-35.5); Mean Corpuscular Hemoglobin 28.2 pg (28.0-33.3); Mean Corpuscular Volume 83.1 fL (83.0-100.0); Mean Platelet Volume 8.5 fL (9.4-12.4); Monocytes # 1.6 K/mcL (0.0-1.3); Monocytes % 74.4 %; Platelet Count 221 K/mcL (140-400); Red Blood Count 4.19 M/mcL (4.19-5.50); Segmented Neutrophils % 1.8 %; White Blood Count 2.2 K/mcL (4.3-11.1)
[2019-02-21 05:35] LABS: BUN/Creatinine Ratio 19 (6-26); Blood Urea Nitrogen 9 mg/dL (6-20); Calcium 8.5 mg/dL (8.6-10.3); Carbon Dioxide 21 mEq/L (23-29); Chloride 104 mEq/L (98-107); Glucose 136 mg/dL (70-105); Osmolality,Calculated 289 (280-300); Phosphorous 2.2 mg/dL (2.7-4.5); Potassium 3.6 mEq/L (3.5-5.1); Sodium 139 mEq/L (136-145); eGFR For African Americans > 60 (> 60); eGFR For Non-African Americans > 60 (> 60)
[2019-02-21 06:11] LABS: Platelet Estimate Normal (Normal)
[2019-02-21] MEDS: *HR* Methadone 5 MG TABLET PO SCH ×2 (06:13→17:00)
[2019-02-21] MEDS: (Chlorzoxazone 500 MG) PO SCH ×2 (07:00→10:33)
[2019-02-21] MEDS: *HR* Promethazine 25 MG/ML VIAL IVP PRN ×2 (11:00→20:33)
[2019-02-21] MEDS ORDERED: Fluconazole 100 MG TABLET PO ONE (11:11)
[2019-02-21] MEDS ORDERED: Milk and Molasses Enema 200 ML RC PRN (11:46)
--- NOTE | 2019-02-21 16:58 | Event Note ---
<Lexa Lynch R - Last Filed: 02/21/19 16:55> Date of Encounter: 02/21/19 Time of Encounter: 08:50 Mr. Benites is a 33 yo male with PMH of cerebral palsy and neurogenic bladder, presented with fever. He reports nausea, body aches, and dysuria as well. Denies other acute complaints at this time. No acute overnight events. He does report past history of C. diff, but has not been on antibiotics recently. Does report a hx of MRSA UTI several years ago. GEN: No acute distress, A&O3 HEAD: Atraumatic EYES: Pupils symmetric, sclera white, conjunctiva pink HEART: RRR, normal S1 and S2, no murmurs LUNGS: Clear to auscultation bilaterally, no wheezes, rhonchi, or crackles ABD: Soft, nontender, nondistended, bowel sounds present, G-tube present EXT: No edema noted, extremities with contractures, pulses 2/4 NEURO: Cooperative with exam PLAN: 1. Sepsis - Continue fluids and rocephin for UTI. Urine and blood cultures pending. UA also shows yeast, so will give dose of diflucan today and consider continuing pending culture results. If he develops another fever may consider broadening coverage 2. UTI - continue rocephin 3. Leukopenia - 2/2 to sepsis 4. Nausea - reports phenergan helps, but his legs get aggitated unless he has benadryl with it, so will dose with benadryl 5. Cerebral Palsy - resume home meds 6. Tube feedings - uses tube feedings at night - nutrition consult for tube feedings 7. Constipation - miralax and enemas PRN <Jere Diana A - Last Filed: 02/21/19 17:31> Date of Encounter: 02/21/19 Mr Benites was admitted earlier today for sepsis presumed related to UTI. He is slowly improving. Exam Resting comfortably Mucus membranes dry Not tachycardic Agree with assessment and plan as above and in H&P
--- NOTE | 2019-02-21 17:33 | Electrocardiograph Report ---
[address] [address] Test Date: 2019-02-20 Pat Name: Luis Benites Department: EXAM2 Room: 2NE28 Gender: M Sciences Dean: : 1985 Requested By: Yann Peralta Order Number: [id number] Reading MD: Casey Duron Measurements Intervals [place] Rate: 123 P: 86 TX: 121 QRS: 86 QRSD: 101 T: 49 QT: 302 QTc: 432 Interpretive Statements Sinus tachycardia Baseline wander in lead(s) II aVR Electronically Signed On 02-21-2019 17:32:36 EDT by Casey Duron
[2019-02-21] MEDS: cefTRIAXone 1,000 MG in Water for inj. (sterile) 10 ML IVP SCH (20:32)
[2019-02-21] MEDS: (Chlorzoxazone 500 MG) PO PRN (20:47)
[2019-02-21] MEDS: Lactobacillus 1 EACH CAP.SPRINK PO SCH (23:51)
[2019-02-22] MEDS: *HR* OxyCODONE/APAP 5/325 TABLET PO SCH ×3 (03:07→21:01)
[2019-02-22 04:45] LABS: Basophils % 0.9 %; Eosinophils % 0.9 %; Hematocrit 33.5 % (37.5-50.1); Hemoglobin 11.1 g/dL (12.9-16.9); Immature Granulocytes % 0.5 % (0-4); Lymphocytes # 0.8 K/mcL (0.6-4.6); Lymphocytes % 38.4 %; Mean Corpuscular HGB Conc 33.1 g/dL (31.6-35.5); Mean Corpuscular Volume 84.6 fL (83.0-100.0); Mean Platelet Volume 8.9 fL (9.4-12.4); Monocytes # 1.2 K/mcL (0.0-1.3); Monocytes % 57.3 %; Platelet Count 216 K/mcL (140-400); Red Blood Count 3.96 M/mcL (4.19-5.50); Red Cell Distribution Width 13.2 % (11.5-14.5); White Blood Count 2.1 K/mcL (4.3-11.1)
[2019-02-22 05:07] LABS: BUN/Creatinine Ratio 16 (6-26); Blood Urea Nitrogen 7 mg/dL (6-20); Calcium 7.9 mg/dL (8.6-10.3); Carbon Dioxide 26 mEq/L (23-29); Chloride 108 mEq/L (98-107); Glucose 119 mg/dL (70-105); Osmolality,Calculated 287 (280-300); Potassium 3.7 mEq/L (3.5-5.1); Sodium 139 mEq/L (136-145); eGFR For African Americans > 60 (> 60); eGFR For Non-African Americans > 60 (> 60)
[2019-02-22 06:27] LABS: Platelet Estimate Normal (Normal)
[2019-02-22] MEDS: *HR* Promethazine 25 MG/ML VIAL IVP PRN ×4 (06:33→18:14)
[2019-02-22] MEDS: *HR* Heparin 5,000 UNIT/ML VIAL SQ SCH ×2 (06:46→21:01)
[2019-02-22] MEDS: *HR* Methadone 5 MG TABLET PO SCH ×2 (06:46→18:13)
[2019-02-22] MEDS: Lactobacillus 1 EACH CAP.SPRINK PO SCH (08:56)
[2019-02-22] MEDS: 0.9 % Sodium Chloride 1,000 ML IVC SCH ×2 (08:59→21:00)
--- NOTE | 2019-02-22 17:37 | Internal Med Progress Note ---
Hospitalist Progress Note - Encounter Date of Encounter: 02/22/19 Time of Encounter: 12:30 - Subjective Interval History: Mr Benites is currently admitted for sepsis related to presumed UTI. He remains moderate to high risk due to potential for worsening clinical status. Mr Benites had fever again today. No CP or SOB. Had some loose stool with hx of C diff - does not feel that is recurring. No abd pain. - Exam Vitals: Temp Pulse Resp BP Pulse Ox 100.6 F H 110 18 100/54 93 02/22/19 15:44 02/22/19 15:44 02/22/19 15:44 02/22/19 15:44 02/22/19 06:53 Exam: General: Alert and oriented. Comfortable at this time. Skin: Normal color, no rash, H: Normocephalic. EENT: EOMI, pupils equal. Mucus membranes moist. Cardiovascular: Normal S1 & S2, no murmurs . Tachycardic Lungs: Normal breath sounds, no wheezes or crackles. Abdomen: Soft, non-tender,Normal bowel sounds. Extremities: No deformity, Neurological: Normal cognition Pulses: radial pulses normal +2. Rest of the physical exam is non contributory - Assessment and Plan (1) UTI (urinary tract infection) Current Visit: Yes Status: Acute Assessment and Plan: Urine culture negative thus far. Will continue IV abx the same. (2) Sepsis Current Visit: Yes Status: Acute Assessment and Plan: No overt source of infection at this time. Procalcitonin mildly elevated. Continue IV abx and supportive care. (3) Leukopenia Current Visit: Yes Status: Acute Assessment and Plan: WBC stable from yesterday. (4) Dehydration Current Visit: Yes Status: Acute Assessment and Plan: Continues to have tachycardia. Still appears to have some dehydration. Will continue fluids today. (5) Nausea Current Visit: Yes Status: Resolved (6) DVT prophylaxis Current Visit: Yes Status: Acute Assessment and Plan: Subcutaneous heparin (7) Depression Current Visit: Yes Status: Chronic Assessment and Plan: Continue home medication (8) Cerebral palsy Current Visit: Yes Status: Chronic Assessment and Plan: home medications (9) GERD (gastroesophageal reflux disease) Current Visit: Yes Status: Chronic Assessment and Plan: Continue home medications (10) Hypophosphatemia Current Visit: Yes Status: Acute Assessment and Plan: Resolved - Time Spent with Patient Total time spent is greater than 50% in coordination of care (as documented) at patient's floor/unit and/or counseling patient: Internal Medicine: Result - Labs CBC & Chem 7: 02/22/19 04:09 02/22/19 04:09 Labs: Short CBC 02/22/19 Range/Units 04:09 WBC 2.1 L (4.3-11.1) K/mcL Hgb 11.1 L (12.9-16.9) g/dL Hct 33.5 L (37.5-50.1) % Plt Count 216 (140-400) K/mcL Neutrophils # 0.0 L (1.6-8.9) K/mcL BMP 02/22/19 04:09 Sodium 139 Potassium 3.7 Chloride 108 H Carbon Dioxide 26 BUN 7 Creatinine 0.45 L Glucose 119 H Calcium 7.9 L - ABG Interpretation ABG results: PT/INR, D-dimer PT 13.2 Seconds (9.4-12.1) H 02/20/19 23:36 Consult Discharge Plan - Plan Referrals: Sunita Singh, [employer] [Primary Care Provider] - (1) UTI (urinary tract infection) Qualifiers: Urinary tract infection type: acute cystitis Hematuria presence: with hematuria Qualified Code(s): N30.01 - Acute cystitis with hematuria (2) Sepsis Qualifiers: Sepsis type: sepsis due to unspecified organism Qualified Code(s): A41.9 - Sepsis, unspecified organism (3) Leukopenia Qualifiers: Leukopenia type: unspecified Qualified Code(s): D72.819 - Decreased white blood cell count, unspecified (7) Depression Qualifiers: Depression Type: unspecified Qualified Code(s): F32.9 - Major depressive dis order, single episode, unspecified (8) Cerebral palsy Qualifiers: Cerebral palsy type: unspecified type Qualified Code(s): G80.9 - Cerebral pal sy, unspecified (9) GERD (gastroesophageal reflux disease) Qualifiers: Esophagitis presence: esophagitis presence not specified Qualified Code(s): K21.9 - Gastro-esophageal reflux disease without esophagitis
[2019-02-22] MEDS: (Chlorzoxazone 500 MG) PO PRN (18:48)
[2019-02-22] MEDS: cefTRIAXone 1,000 MG in Water for inj. (sterile) 10 ML IVP SCH (21:00)
[2019-02-23] MEDS: *HR* Promethazine 25 MG/ML VIAL IVP PRN ×3 (00:37→17:01)
[2019-02-23] MEDS: (Chlorzoxazone 500 MG) PO PRN ×4 (01:10→21:43)
[2019-02-23] MEDS: *HR* OxyCODONE/APAP 5/325 TABLET PO SCH ×3 (03:29→21:41)
[2019-02-23] MEDS: *HR* Heparin 5,000 UNIT/ML VIAL SQ SCH ×2 (06:11→17:01)
[2019-02-23] MEDS: *HR* Methadone 5 MG TABLET PO SCH ×2 (06:12→17:00)
[2019-02-23 07:45] LABS: Hematocrit 33.8 % (37.5-50.1); Mean Corpuscular HGB Conc 32.5 g/dL (31.6-35.5); Mean Corpuscular Hemoglobin 27.3 pg (28.0-33.3); Mean Corpuscular Volume 83.9 fL (83.0-100.0); Monocytes # 1.6 K/mcL (0.0-1.3); Nucleated Red Blood Cells 0.6 /100 WBC (0); Platelet Count 236 K/mcL (140-400); Red Blood Count 4.03 M/mcL (4.19-5.50); Red Cell Distribution Width 13.2 % (11.5-14.5); White Blood Count 3.1 K/mcL (4.3-11.1)
[2019-02-23] MEDS: Lactobacillus 1 EACH CAP.SPRINK PO SCH (07:47)
[2019-02-23 08:02] LABS: BUN/Creatinine Ratio 14 (6-26); Blood Urea Nitrogen 6 mg/dL (6-20); Calcium 8.1 mg/dL (8.6-10.3); Carbon Dioxide 25 mEq/L (23-29); Chloride 107 mEq/L (98-107); Glucose 102 mg/dL (70-105); Osmolality,Calculated 284 (280-300); Potassium 3.8 mEq/L (3.5-5.1); Sodium 138 mEq/L (136-145); eGFR For African Americans > 60 (> 60); eGFR For Non-African Americans > 60 (> 60)
[2019-02-23 08:16] LABS: Lymphocytes # 1.2 K/mcL (0.6-4.6); Neutrophils # 0.3 K/mcL (1.6-8.9)
[2019-02-23 08:17] LABS: Platelet Estimate Normal (Normal)
[2019-02-23] MEDS: 0.9 % Sodium Chloride 1,000 ML IVC SCH ×2 (11:35→21:53)
--- NOTE | 2019-02-23 16:13 | Internal Med Progress Note ---
Hospitalist Progress Note - Encounter Date of Encounter: 02/23/19 Time of Encounter: 12:10 - Subjective Interval History: Mr Benites is currently admitted for sepsis presumed due to UTI. He remains moderate to high risk due to potential for worsening clinical status. Mr Benites is resting comfortably at this time. No fever since yesterday. No CP or SOB. Remains tachycardic and is worse with exertion. No GI issues at this time. - Exam Vitals: Temp Pulse Resp BP Pulse Ox 98.3 F 116 18 113/89 93 02/23/19 15:43 02/23/19 15:43 02/23/19 15:43 02/23/19 15:43 02/23/19 15:43 Exam: General: Alert and oriented. Comfortable at this time. Skin: Normal color, no rash, H: Normocephalic. EENT: EOMI, pupils equal. Mucus membranes moist. Cardiovascular: Normal S1 & S2, no murmurs. Continues to be tachycardic - sinus tach on monitor. Lungs: Normal breath sounds, no wheezes or crackles. Abdomen: Soft, non-tender,Normal bowel sounds. Extremities: No deformity, No edema Neurological: Normal cognition Pulses: radial pulses normal +2. Rest of the physical exam is non contributory - Assessment and Plan (1) Sinus tachycardia Current Visit: Yes Status: Acute Assessment and Plan: Pt remains very tachycardic with exertion. No CP or SOB. Will check echo. Consider beta shubham. (2) UTI (urinary tract infection) Current Visit: Yes Status: Acute Assessment and Plan: Urine culture is negative. Has been receiving IV abx and now is afebrile. (3) Sepsis Current Visit: Yes Status: Acute Assessment and Plan: Clinically slowly improving. Remains tachycardic. Will continue IV fluids. (4) Leukopenia Current Visit: Yes Status: Acute Assessment and Plan: WBC is improving. (5) Dehydration Current Visit: Yes Status: Acute Assessment and Plan: Continues to have tachycardia. Continue fluids today. (6) Nausea Current Visit: Yes Status: Resolved Assessment and Plan: Appears to be improving. Supportive care. (7) DVT prophylaxis Current Visit: Yes Status: Acute Assessment and Plan: Subcutaneous heparin (8) Depression Current Visit: Yes Status: Chronic Assessment and Plan: Continue home medication (9) Cerebral palsy Current Visit: Yes Status: Chronic Assessment and Plan: home medications (10) GERD (gastroesophageal reflux disease) Current Visit: Yes Status: Chronic Assessment and Plan: Continue home medications - Time Spent with Patient Total time spent is greater than 50% in coordination of care (as documented) at patient's floor/unit and/or counseling patient: Internal Medicine: Result - Labs CBC & Chem 7: 02/23/19 07:21 02/23/19 07:21 Labs: Short CBC 02/23/19 Range/Units 07:21 WBC 3.1 L (4.3-11.1) K/mcL Hgb 11.0 L (12.9-16.9) g/dL Hct 33.8 L (37.5-50.1) % Plt Count 236 (140-400) K/mcL Neutrophils # 0.3 L (1.6-8.9) K/mcL BMP 02/23/19 07:21 Sodium 138 Potassium 3.8 Chloride 107 Carbon Dioxide 25 BUN 6 Creatinine 0.44 L Glucose 102 Calcium 8.1 L - ABG Interpretation ABG results: PT/INR, D-dimer PT 13.2 Seconds (9.4-12.1) H 02/20/19 23:36 Consult Discharge Plan - Plan Referrals: Sunita Singh, [facility]ER [Primary Care Provider] - (2) UTI (urinary tract infection) Qualifiers: Urinary tract infection type: acute cystitis Hematuria presence: with hematuria Qualified Code(s): N30.01 - Acute cystitis with hematuria (3) Sepsis Qualifiers: Sepsis type: sepsis due to unspecified organism Qualified Code(s): A41.9 - Sepsis, unspecified organism (4) Leukopenia Qualifiers: Leukopenia type: unspecified Qualified Code(s): D72.819 - Decreased white bl ood cell count, unspecified (8) Depression Qualifiers: Depression Type: unspecified Qualified Code(s): F32.9 - Major depressive disorder, single episode, unspecified (9) Cerebral palsy Qualifiers: Cerebral palsy type: unspecified type Qualified Code(s): G80.9 - Cerebral palsy, unspecified (10) GERD (gastroesophageal reflux disease) Qualifiers: Esophagitis presence: esophagitis presence not specified Qualified Code(s): K21.9 - Gastro-esophageal reflux disease without esophagitis
[2019-02-23] MEDS: cefTRIAXone 1,000 MG in Water for inj. (sterile) 10 ML IVP SCH (21:40)
[2019-02-23] MEDS: Magic Mouthwash 10 ML UD Cup PO SCH (23:07)
[2019-02-23] MEDS: Nystatin POWDER 30 GM BOTTLE TP SCH (23:08)
[2019-02-24] MEDS: *HR* Promethazine 25 MG/ML VIAL IVP PRN ×4 (03:32→23:26)
[2019-02-24] MEDS: (Chlorzoxazone 500 MG) PO PRN (03:37)
[2019-02-24] MEDS: *HR* OxyCODONE/APAP 5/325 TABLET PO SCH ×3 (04:11→20:31)
[2019-02-24] MEDS: *HR* Heparin 5,000 UNIT/ML VIAL SQ SCH (06:26)
[2019-02-24] MEDS: *HR* Methadone 5 MG TABLET PO SCH ×2 (06:27→17:50)
[2019-02-24] MEDS: Magic Mouthwash 10 ML UD Cup PO SCH ×4 (07:52→17:00)
--- NOTE | 2019-02-24 09:29 | Internal Med Progress Note ---
<Lexa Lynch Sami - Last Filed: 02/24/19 13:49> Hospitalist Progress Note - Encounter Date of Encounter: 02/24/19 Time of Encounter: 08:35 - Subjective Interval History: Patient seen and examined the bedside. He reports that he is having worsening muscle spasm. He states that he will get these from time to time due to his cerebral palsy, but this time it is worse and more constant. He states that they are sometimes associated with pain. However he denies significant pain at this time. Continues to remain afebrile, but tachycardia continues. Does admit to SOB but only during a muscle spasm. He denies CP, abdominal pain, or difficulty with bowels. - Exam Vitals: Temp Pulse Resp BP Pulse Ox 97.5 F L 116 18 127/86 97 02/24/19 08:09 02/24/19 08:09 02/24/19 08:09 02/24/19 08:09 02/24/19 08:09 Exam: GEN: Mild distress with current muscle spams, A&O3 HEAD: Atraumatic EYES: Pupils symmetric, sclera white, conjunctiva pink HEART: Regular, tachycardia, normal S1 and S2, no murmurs LUNGS: Clear to auscultation bilaterally, no wheezes, rhonchi, or crackles ABD: Soft, nontender, nondistended, bowel sounds present, G-tube present EXT: No edema noted, extremities with contractures, pulses 2/4 : right groin with mild erythema NEURO: Cooperative with exam - Assessment and Plan (1) Sinus tachycardia Current Visit: Yes Status: Acute Assessment and Plan: Persistent tachycardia, but without chest pain Does report some dyspnea, but only during a muscle spasm Will check echo and d-dimer (patient immobile, on testosterone replacement) - D-dimer elevated - ordering chest CTA Consider beta shubham (2) UTI (urinary tract infection) Current Visit: Yes Status: Acute Assessment and Plan: UCx negative - has received Rocephin, now afebrile Also had seminal vesicle inflammation on CT (3) Sepsis Current Visit: Yes Status: Acute Assessment and Plan: Clinically improving, but remains tachycardic No clear source with UCx negative and BCx NGTD Continue IV fluids and antibiotics (4) Leukopenia Current Visit: Yes Status: Acute Assessment and Plan: Improving (5) Dehydration Current Visit: Yes Status: Acute Assessment and Plan: Persistent tachycardia - continue IV fluids (6) Nausea Current Visit: Yes Status: Resolved Assessment and Plan: Improving - continue current regimen (7) Cerebral palsy Current Visit: Yes Status: Chronic Assessment and Plan: Continue home medications Does report intermittent muscle spasms - currently worse than normal - will give cyclobenzaprine - magnesium normal, will check ionized calcium & phos (8) GERD (gastroesophageal reflux disease) Current Visit: Yes Status: Chronic Assessment and Plan: Continue home medications DVT Prophylaxis: SQ heparin - Time Spent with Patient Total time spent is greater than 50% in coordination of care (as documented) at patient's floor/unit and/or counseling patient: Internal Medicine: Result - Labs CBC & Chem 7: 02/24/19 12:33 02/24/19 12:33 - ABG Interpretation ABG results: PT/INR, D-dimer PT 13.2 Seconds (9.4-12.1) H 02/20/19 23:36 Consult Discharge Plan - Plan Referrals: Sunita Singh, [employer] [Primary Care Provider] - <Jere Diana - Last Filed: 02/24/19 15:07> Hospitalist Progress Note - Encounter Date of Encounter: 02/24/19 - Exam Vitals: Temp Pulse Resp BP Pulse Ox 97.7 F 98 18 128/91 100 02/24/19 12:00 02/24/19 12:30 02/24/19 12:00 02/24/19 12:00 02/24/19 12:00 - Assessment and Plan (1) Sinus tachycardia Current Visit: Yes Status: Acute (2) UTI (urinary tract infection) Current Visit: Yes Status: Acute (3) Sepsis Current Visit: Yes Status: Acute (4) Leukopenia Current Visit: Yes Status: Acute (5) Dehydration Current Visit: Yes Status: Acute (6) Nausea Current Visit: Yes Status: Resolved (7) DVT prophylaxis Current Visit: Yes Status: Acute (8) Depression Current Visit: Yes Status: Chronic (9) Cerebral palsy Current Visit: Yes Status: Chronic (10) GERD (gastroesophageal reflux disease) Current Visit: Yes Status: Chronic (11) Muscle spasm Current Visit: Yes Status: Acute - Time Spent with Patient Total time spent is greater than 50% in coordination of care (as documented) at patient's floor/unit and/or counseling patient: Internal Medicine: Result - Labs CBC & Chem 7: 02/24/19 12:33 02/24/19 12:33 Labs: Short CBC 02/24/19 Range/Units 12:33 WBC 2.9 L (4.3-11.1) K/mcL Hgb 11.5 L (12.9-16.9) g/dL Hct 35.6 L (37.5-50.1) % Plt Count 274 (140-400) K/mcL Neutrophils # 0.6 L (1.6-8.9) K/mcL BMP 02/24/19 12:33 Sodium 143 Potassium 3.8 Chloride 109 H Carbon Dioxide 24 BUN 5 L Creatinine 0.39 L Glucose 98 Calcium 8.6 - ABG Interpretation ABG results: PT/INR, D-dimer PT 13.2 Seconds (9.4-12.1) H 02/20/19 23:36 773 ng/mLFEU (0-500) H 02/24/19 12:33 - Attending Attestation I examined this patient and my medical decision-making was reviewed with the Resident Physician on 02/24/19. I agree with the documented findings, disposition and treatment plan as described except to the extent set forth below. Mr Benites is currently admitted for sepsis from presumed UTI. He remains moderate to high risk due to potential for worsening clinical status. Mr Benites has been having muscle spasms today. Happen occasionally but this one is worse. No SOB. Heart rate still somewhat elevated but maybe lower. No fever. Exam alert Uncomfortable due to spasm Mucus membranes dry Heart reg and not tachy now. No wheeze abd soft Diffuse muscle spasms No edema I/P 1. Muscle spasm - given Flexeril 2. Sepsis - unsure source but suspect urine despite neg culture. 3. Tachycardia - persist. D dimer ordered and if elevated CTA to be done. Echo ordered Further diagnoses and plan as above. <Lexa Lynch - Last Filed: 02/24/19 13:49> (2) UTI (urinary tract infection) Qualifiers: Urinary tract infection type: acute cystitis Hematuria presence: with hematuria Qualified Code(s): N30.01 - Acute cystitis with hematuria (3) Sepsis Qualifiers: Sepsis type: sepsis due to unspecified organism Qualified Code(s): A41.9 - Sepsis, unspecified organism (4) Leukopenia Qualifiers: Leukopenia type: unspecified Qualified Code(s): D72.819 - Decreased white blood cell count, unspecified (7) Cerebral palsy Qualifiers: Cerebral palsy type: unspecified type Qualified Code(s): G80.9 - Cerebral palsy, unspecified (8) GERD (gastroesophageal reflux disease) Qualifiers: Esophagitis presence: esophagitis presence not specified Qualified Code(s): K21.9 - Gastro-esophageal reflux disease without esophagitis <Jere Diana A - Last Filed: 02/24/19 15:07> (2) UTI (urinary tract infection) Qualifiers: Urinary tract infection type: acute cystitis Hematuria presence: with hematuria Qualified Code(s): N30.01 - Acute cystitis with hematuria (3) Sepsis Qualifiers: Sepsis type: sepsis due to unspecified organism Qualified Code(s): A41.9 - Sepsis, unspecified organism (4) Leukopenia Qualifiers: Leukopenia type: unspecified Qualified Code(s): D72.819 - Decreased white blood cell count, unspecified (8) Depression Qualifiers: Depression Type: unspecified Qualified Code(s): F32.9 - Major depressive disorder, single episode, unspecified (9) Cerebral palsy Qualifiers: Cerebral palsy type: unspecified type Qualified Code(s): G80.9 - Cerebral palsy, unspecified (10) GERD (gastroesophageal reflux disease) Qualifiers: Esophagitis presence: esophagitis presence not specified Qualified Code(s): K21.9 - Gastro-esophageal reflux disease without esophagitis
[2019-02-24] MEDS: TESTOSTERONE TP SCH (09:30)
[2019-02-24] MEDS: 0.9 % Sodium Chloride 1,000 ML IVC SCH (09:54)
[2019-02-24] MEDS: Lactobacillus 1 EACH CAP.SPRINK PO SCH (10:05)
[2019-02-24] MEDS: Nystatin POWDER 30 GM BOTTLE TP SCH ×3 (10:09→23:18)
[2019-02-24 13:09] LABS: Eosinophils # 0.1 K/mcL (0.0-0.6); Hematocrit 35.6 % (37.5-50.1); Hemoglobin 11.5 g/dL (12.9-16.9); Mean Corpuscular HGB Conc 32.3 g/dL (31.6-35.5); Mean Corpuscular Hemoglobin 27.4 pg (28.0-33.3); Mean Platelet Volume 8.8 fL (9.4-12.4); Monocytes # 0.9 K/mcL (0.0-1.3); Platelet Count 274 K/mcL (140-400); Red Blood Count 4.19 M/mcL (4.19-5.50); Red Cell Distribution Width 13.6 % (11.5-14.5); White Blood Count 2.9 K/mcL (4.3-11.1)
[2019-02-24 13:10] LABS: VBG Ionized Calcium 1.18 mmol/L (1.15-1.35)
[2019-02-24 13:30] LABS: BUN/Creatinine Ratio 13 (6-26); Blood Urea Nitrogen 5 mg/dL (6-20); Calcium 8.6 mg/dL (8.6-10.3); Carbon Dioxide 24 mEq/L (23-29); Chloride 109 mEq/L (98-107); Glucose 98 mg/dL (70-105); Osmolality,Calculated 293 (280-300); Phosphorous 2.2 mg/dL (2.7-4.5); Potassium 3.8 mEq/L (3.5-5.1); Sodium 143 mEq/L (136-145); eGFR For African Americans > 60 (> 60); eGFR For Non-African Americans > 60 (> 60)
[2019-02-24] MEDS ORDERED: Isovue-370 500 ML BOTTLE IVP ONE (13:41)
[2019-02-24] MEDS ORDERED: *HR* Heparin 5,000 UNIT/ML VIAL SQ SCH (14:00)
[2019-02-24 14:08] LABS: Neutrophils # 0.6 K/mcL (1.6-8.9); Platelet Estimate Normal (Normal); Reactive Lymphocytes Present (Not Present)
[2019-02-24] MEDS: cefTRIAXone 1,000 MG in Water for inj. (sterile) 10 ML IVP SCH (20:31)
[2019-02-25] MEDS: *HR* Heparin 5,000 UNIT/ML VIAL SQ SCH ×3 (02:15→18:22)
[2019-02-25] MEDS: 0.9 % Sodium Chloride 1,000 ML IVC SCH ×2 (02:16→18:37)
[2019-02-25] MEDS: *HR* OxyCODONE/APAP 5/325 TABLET PO SCH ×2 (03:54→11:49)
[2019-02-25] MEDS: *HR* Methadone 5 MG TABLET PO SCH ×2 (06:33→18:22)
[2019-02-25] MEDS: *HR* Promethazine 25 MG/ML VIAL IVP PRN ×3 (07:22→21:25)
[2019-02-25] MEDS: Magic Mouthwash 10 ML UD Cup PO SCH ×3 (09:05→18:22)
[2019-02-25] MEDS: TESTOSTERONE TP SCH (09:07)
[2019-02-25] MEDS: Nystatin POWDER 30 GM BOTTLE TP SCH ×3 (09:08→21:40)
[2019-02-25] MEDS: Lactobacillus 1 EACH CAP.SPRINK PO SCH (09:15)
[2019-02-25 10:35] LABS: Eosinophils # 0.1 K/mcL (0.0-0.6); Hematocrit 37.1 % (37.5-50.1); Hemoglobin 11.7 g/dL (12.9-16.9); Mean Corpuscular HGB Conc 31.5 g/dL (31.6-35.5); Mean Corpuscular Volume 85.7 fL (83.0-100.0); Platelet Count 341 K/mcL (140-400); Red Blood Count 4.33 M/mcL (4.19-5.50); Red Cell Distribution Width 13.8 % (11.5-14.5); White Blood Count 4.1 K/mcL (4.3-11.1)
[2019-02-25 11:15] LABS: Alanine Aminotransferase 69 Units/L (7-52); Albumin 3.4 g/dL (3.5-5.7); Albumin/Globulin Ratio 1.3 (1.1-2.2); Alkaline Phosphatase 62 Units/L (34-104); Aspartate Amino Transferase 84 Units/L (13-39); BUN/Creatinine Ratio 14 (6-26); Bilirubin,Total 0.4 mg/dL (0.3-1.0); Blood Urea Nitrogen 5 mg/dL (6-20); Calcium 8.6 mg/dL (8.6-10.3); Carbon Dioxide 25 mEq/L (23-29); Chloride 108 mEq/L (98-107); Globulin 2.6 g/dL (2.4-3.5); Glucose 90 mg/dL (70-105); Lactate Dehydrogenase 253 Units/L (140-271); Neutrophils # 1.6 K/mcL (1.6-8.9); Osmolality,Calculated 289 (280-300); Platelet Estimate Normal (Normal); Potassium 3.7 mEq/L (3.5-5.1); Sodium 141 mEq/L (136-145); eGFR For African Americans > 60 (> 60); eGFR For Non-African Americans > 60 (> 60)
[2019-02-25 15:30] LABS: Hepatitis B Surface Antigen Nonreactive (Nonreactive)
--- NOTE | 2019-02-25 15:38 | Oncology Inp Consult Note ---
<Shannan Galicia L - Last Filed: 02/25/19 17:30> Date of Encounter: 02/25/19 Time of Encounter: 14:00 Assessment and Plan (1) Leukopenia Status: Acute Assessment and plan: Admitted with sepsis and suspected UTI Since admission, he has been treated with Rocephin for suspected UTI, urine culture has since resulted and is unrevealing. Blood cultures from 02/20 are NGTD. He has been afebrile since 02/22. No prior blood counts to compare to, no other cytopenias Blood smear shows left shift and toxic changes LDH normal Procal 0.26 Slightly elevated AST/ALT, hepatitis panel negative Plan: Leukopenia appears to be resolving, although was initially severe with ANC genesis of 0.0 on 02/21 and 02/22 with associated metamyelocytes, myelocytes and promyelocytes noted on peripheral blood Exact source of infection is somewhat unknown as urine culture was negative, his presentation is suspicious for underlying viral process, mononucleosis reflex testing has been ordered Suspect his leukopenia is related to underlying infectious process of potential viral source, we will continue to follow to monitor AM CBC Qualifiers: Leukopenia type: unspecified Qualified Code(s): D72.819 - Decreased white blood cell count, unspecified - Data of Consult Requesting Physician: Jere Diana DO Primary Care Provider: Sunita Singh CNP - Consult Narrative Reason for consult: Leukopenia History of present illness: Mr. Benites is a 33 year old male with past medical history significant for cerebral palsy, asthma, seizures, depression who presents to ED with complaint of fever as high as 104.6, burning with urination and generalized body aches. Vitals on presentation revealed a fever of 103.2, tachycardia of 130, tachypnea of 20, he was saturating at 95% on room air. He was also noted to be leukopenic on presentation with WBC 1.5 and ANC of 100, Hgb and Plt count normal. UA showed protein, blood, ketones, bilirubin, yeast, and few bacteria, but negative for leukocyte esterase and nitrites. CXR showed no acute process. Patient received CT ab/pelvis which had shown bladder wall thickening (cystitis vs neurogenic bladder vs outlet obstruction) and possible seminal vesiculitis. Admitted for sepsis and suspected UTI. Patient endorses some generalized weakness and fatigue just prior to presentation. Appetite has been poor over the past week. He has also noticed a lesion to his lip as well as genital region that is now healing. He denies prior sore throat, SOB, chest pain, night sweats, lymphadenopathy, abdominal pain, nausea, vomiting, diarrhea. Past Med Surg Social Fam HX - Past Medical History Medical history: asthma, seizures, other Additional medical history: CP, last seizure twenty plus years ago Psychiatric history: depression - Past Surgical History Additional surgical history: spinal fusions, hip surgeries - Social History Smoking Status: Never smoker Smokeless Tobacco Status: No Alcohol use: none Drug use: none Medications and Allergies Escitalopram [Lexapro] 20 mg PO DAILY 01/13/17 [History] Methadone 5 mg PO Q12HR 01/13/17 [History] Omeprazole [PriLOSEC] 20 mg PO DAILY 01/13/17 [History] Oxycodone HCl/Acetaminophen [Percocet 5-325 mg Tablet] 1 tab PO Q8H PRN 01/13/17 [History] Chlorzoxazone 500 mg PO QID 02/21/19 [History] Docusate Sodium/Benzocaine [Enemeez Plus Mini Enema] 1 cap RC Q48H 02/21/19 [History] Doxylamine Succinate [Unisom] 50 mg PO HS 02/21/19 [History] NALOXONE 4 MG Nasal Otis [Narcan] 1 spray NS AD PRN 02/21/19 [History] Testosterone [Androgel] 1 packet TP DAILY 02/21/19 [History] Allergy/AdvReac Type Severity Reaction Status Date / Time meperidine [From Demerol] Allergy Nausea Verified 02/20/19 23:36 morphine Allergy Hives Verified 02/20/19 23:36 Penicillins [PCN] Allergy Hives Verified 02/20/19 23:36 pregabalin [From Lyrica] Allergy Hives Verified 02/20/19 23:36 Sulfa (Sulfonamide Allergy Hives Verified 02/20/19 23:36 Antibiotics) Constitutional: Present: anorexia, chills, fatigue, fever(s), headache(s), night sweats, weight loss Eyes: Absent: change in vision Nose, mouth and throat: Present: mouth lesions. Absent: dysphagia, odynophagia Cardiovascular: Absent: chest pain Respiratory: Absent: cough, dyspnea Gastrointestinal: Absent: abdominal pain, diarrhea, nausea, vomiting Genitourinary: Present: as per HPI, dysuria Musculoskeletal: Present: muscle weakness Integumentary: Absent: rash, wounds Neurological: Present: as per HPI Psychiatric: Present: as per HPI Endocrine: Present: fatigue Hematologic/Lymphatic: Present: as per HPI. Absent: lymphadenopathy Consult Discharge Plan - Plan Referrals: Sunita Singh CNP [Primary Care Provider] - Inpatient Charges Provider: Dr. Deven Molina <Ran Molina - Last Filed: 02/25/19 20:50> Date of Encounter: 02/25/19 - Data of Consult Requesting Physician: Orlando Murray Primary Care Provider: Sunita Singh CNP - Attending Attestation I have seen and examined Mr. Benites and agree with the assessment and plan put in place by Ms. Galicia. He initially presented with high fever and upon admission was found to have leukopenia with neutropenia. Pro-calcitonin was elevated as well. Clinically, he is improving. His neutropenia has resolved. He is clinically feeling better as well. On exam, he has evidence of resolving oral aphthous ulcers as well as genital ulcers. In addition, he is found to have a mild transaminitis. Lungs are clear to auscultation. Heart regular rate and rhythm. Regarding his cytopenias, this is likely secondary to underlying infection, likely a viral process. The presence of aphthous ulcers, high-grade fever and transaminitis with support this diagnosis. Repeat CBC in the morning. EBV testing has been requested. We will arrange for follow-up and to 3 weeks m y office with a CBC as well to ensure resolution. Inpatient Charges Provider: Dr. Deven Molina Consult - Inpatient: [id number]
[2019-02-25 16:01] LABS: Hepatitis C Virus Antibody Nonreactive (Nonreactive)
[2019-02-25 16:02] LABS: Hepatitis B Core IgM Nonreactive (Nonreactive)
[2019-02-25 16:04] LABS: Hepatitis A Antibody IgM Nonreactive (Nonreactive)
--- NOTE | 2019-02-25 18:07 | Internal Med Progress Note ---
<Lexa Lynch Sami - Last Filed: 02/25/19 18:03> Hospitalist Progress Note - Encounter Date of Encounter: 02/25/19 Time of Encounter: 13:14 - Subjective Interval History: Patient seen and examined at bedside. Reports the muscle spasms are not as bad today. He denies significant pain or dyspnea. Continues to remain afebrile. Some intermittent tachycardia but overall improving. Denies other symptoms. No acute overnight events. - Exam Vitals: Temp Pulse Resp BP Pulse Ox 98.1 F 91 18 115/86 98 02/25/19 17:32 02/25/19 17:32 02/25/19 17:32 02/25/19 17:32 02/25/19 17:32 Exam: GEN: Mild distress with current muscle spams, A&O3 HEAD: Atraumatic EYES: Pupils symmetric, sclera white, conjunctiva pink HEART: RRR, normal S1 and S2, no murmurs LUNGS: Clear to auscultation bilaterally, no wheezes, rhonchi, or crackles ABD: Soft, nontender, nondistended, bowel sounds present, G-tube present EXT: No edema noted, extremities with contractures, pulses 2/4 : right groin with mild erythema NEURO: Cooperative with exam - Assessment and Plan (1) Leukopenia Current Visit: Yes Status: Acute Assessment and Plan: Improving, up to 4.1 today Smear with low count, but normal morphology Hem/Onc consulted - recommend mono spot (2) Sinus tachycardia Current Visit: Yes Status: Acute Assessment and Plan: Improving overall, but still with some intermittent tachycardia CTA negative for PE or pneumonia (3) UTI (urinary tract infection) Current Visit: Yes Status: Acute Assessment and Plan: UCx negative - has received Rocephin, now afebrile Also had seminal vesicle inflammation on CT, so this may be a source of infection - at this time plan to continue for 10 days of antibiotics (4) Sepsis Current Visit: Yes Status: Acute Assessment and Plan: Clinically improving, but remains with intermittent tachycardic UCx negative and BCx NGTD Mild elevation of AST/ALT - hepatitis panel negative Resp Inf Panel pending Continue IV fluids and antibiotics at this time (5) Dehydration Current Visit: Yes Status: Acute Assessment and Plan: Improving (6) Nausea Current Visit: Yes Status: Resolved Assessment and Plan: Improving - continue current regimen (7) Cerebral palsy Current Visit: Yes Status: Chronic Assessment and Plan: Continue home medications Muscle spasms are improved today (8) GERD (gastroesophageal reflux disease) Current Visit: Yes Status: Chronic Assessment and Plan: Continue home medications DVT Prophylaxis: SQ heparin - Time Spent with Patient Total time spent is greater than 50% in coordination of care (as documented) at patient's floor/unit and/or counseling patient: Internal Medicine: Result - Labs CBC & Chem 7: 02/25/19 09:11 02/25/19 09:11 Labs: Short CBC 02/25/19 Range/Units 09:11 WBC 4.1 L (4.3-11.1) K/mcL Hgb 11.7 L (12.9-16.9) g/dL Hct 37.1 L (37.5-50.1) % Plt Count 341 (140-400) K/mcL Neutrophils # 1.6 (1.6-8.9) K/mcL BMP 02/25/19 09:11 Sodium 141 Potassium 3.7 Chloride 108 H Carbon Dioxide 25 BUN 5 L Creatinine 0.36 L Glucose 90 Calcium 8.6 Liver Function 02/25/19 Range/Units 09:11 Total Bilirubin 0.4 (0.3-1.0) mg/dL AST 84 H (13-39) Units/L ALT 69 H (7-52) Units/L Alkaline Phosphatase 62 (34-104) Units/L Albumin 3.4 L (3.5-5.7) g/dL - ABG Interpretation ABG results: PT/INR, D-dimer PT 13.2 Seconds (9.4-12.1) H 02/20/19 23:36 773 ng/mLFEU (0-500) H 02/24/19 12:33 - Impressions Impressions Echocardiogram 02/25/19 08:39 Impressions: LVEF 60-65%. Normal LV chamber size, wall thickness and function. Normal left ventricular diastolic function. Normal right ventricular structure and function. No evidence of pulmonary hypertension. No significant valvular dysfunction. Left Ventricular Wall Motion: Rest Echo Findings All wall segments showed normal motion. Findings: Study Quality * Technically sub-optimal due to poor echocardiographic windows. ECG Findings * Normal sinus rhythm. Left Ventricle * LVEF 60-65%. * Normal LV chamber size, wall thickness and function. * Normal left ventricular diastolic function. Right Ventricle * Normal right ventricular structure and function. Left Atrium * Normal left atrial size. Right Atrium * Normal right atrial size. Interatrial Septum * Interatrial septum not well evaluated. Aortic Valve * Aortic valve not well visualized. * No aortic regurgitation. * No aortic stenosis. Mitral Valve * Normal mitral valve structure and function. * No mitral regurgitation. * No mitral stenosis. Tricuspid Valve * Normal tricuspid valve structure and function. * Trace tricuspid regurgitation. * No evidence of pulmonary hypertension. Pulmonic Valve * Pulmonic valve not well visualized. * No pulmonic regurgitation. Aorta * Normally sized aortic root. Pericardium * The pericardium appears normal. IVC * Normal IVC dimensions and inspiratory collapse. Pulmonary Artery * Normal visualized portions of the main pulmonary artery. Consult Discharge Plan - Plan Referrals: Sunita Singh, SPANISH INTERPRETER/TRANSLATOR [Primary Care Provider] - <Jere Diana - Last Filed: 02/25/19 19:24> Hospitalist Progress Note - Encounter Date of Encounter: 02/25/19 - Exam Vitals: Temp Pulse Resp BP Pulse Ox 98.1 F 91 18 115/86 98 02/25/19 17:32 02/25/19 17:32 02/25/19 17:32 02/25/19 17:32 02/25/19 17:32 - Assessment and Plan (1) Sinus tachycardia Current Visit: Yes Status: Acute (2) UTI (urinary tract infection) Current Visit: Yes Status: Acute (3) Sepsis Current Visit: Yes Status: Acute (4) Leukopenia Current Visit: Yes Status: Acute (5) Dehydration Current Visit: Yes Status: Acute (6) Nausea Current Visit: Yes Status: Resolved (7) DVT prophylaxis Current Visit: Yes Status: Acute (8) Depression Current Visit: Yes Status: Chronic (9) Cerebral palsy Current Visit: Yes Status: Chronic (10) GERD (gastroesophageal reflux disease) Current Visit: Yes Status: Chronic (11) Muscle spasm Current Visit: Yes Status: Acute - Time Spent with Patient Total time spent is greater than 50% in coordination of care (as documented) at patient's floor/unit and/or counseling patient: Internal Medicine: Result - Labs CBC & Chem 7: 02/25/19 09:11 02/25/19 09:11 Labs: Short CBC 02/25/19 Range/Units 09:11 WBC 4.1 L (4.3-11.1) K/mcL Hgb 11.7 L (12.9-16.9) g/dL Hct 37.1 L (37.5-50.1) % Plt Count 341 (140-400) K/mcL Neutrophils # 1.6 (1.6-8.9) K/mcL BMP 02/25/19 09:11 Sodium 141 Potassium 3.7 Chloride 108 H Carbon Dioxide 25 BUN 5 L Creatinine 0.36 L Glucose 90 Calcium 8.6 Liver Function 02/25/19 Range/Units 09:11 Total Bilirubin 0.4 (0.3-1.0) mg/dL AST 84 H (13-39) Units/L ALT 69 H (7-52) Units/L Alkaline Phosphatase 62 (34-104) Units/L Albumin 3.4 L (3.5-5.7) g/dL - ABG Interpretation ABG results: PT/INR, D-dimer PT 13.2 Seconds (9.4-12.1) H 02/20/19 23:36 773 ng/mLFEU (0-500) H 02/24/19 12:33 - Impressions Impressions Echocardiogram 02/25/19 08:39 Impressions: LVEF 60-65%. Normal LV chamber size, wall thickness and function. Normal left ventricular diastolic function. Normal right ventricular structure and function. No evidence of pulmonary hypertension. No significant valvular dysfunction. Left Ventricular Wall Motion: Rest Echo Findings All wall segments showed normal motion. Findings: Study Quality * Technically sub-optimal due to poor echocardiographic windows. ECG Findings * Normal sinus rhythm. Left Ventricle * LVEF 60-65%. * Normal LV chamber size, wall thickness and function. * Normal left ventricular diastolic function. Right Ventricle * Normal right ventricular structure and function. Left Atrium * Normal left atrial size. Right Atrium * Normal right atrial size. Interatrial Septum * Interatrial septum not well evaluated. Aortic Valve * Aortic valve not well visualized. * No aortic regurgitation. * No aortic stenosis. Mitral Valve * Normal mitral valve structure and function. * No mitral regurgitation. * No mitral stenosis. Tricuspid Valve * Normal tricuspid valve structure and function. * Trace tricuspid regurgitation. * No evidence of pulmonary hypertension. Pulmonic Valve * Pulmonic valve not well visualized. * No pulmonic regurgitation. Aorta * Normally sized aortic root. Pericardium * The pericardium appears normal. IVC * Normal IVC dimensions and inspiratory collapse. Pulmonary Artery * Normal visualized portions of the main pulmonary artery. - Attending Attestation I examined this patient and my medical decision-making was reviewed with the Resident Physician on 02/25/19. I agree with the documented findings, disposition and treatment plan as described except to the extent set forth below. Mr Benites is currently admitted for sepsis. Urine culture negative. He remains moderate to high risk due to potential for worsening clinical status. Mr Benites is having less muscle spasm. No fever or chills. No cough. LFTs up a little today. No abd pain Exam Alert Mild distress due to spasm Mucus membranes dry Heart not tachy now No wheeze abd soft I/P 1. Leukopenia - heme to see - most likely infectious 2. Sepsis - cultures all neg as are xrays. RIP pending. 3. Elevated transaminases - ? med related. Hep panel negative Further diagnoses and plan as above. Probable d/c tomorrow. <Lexa Lynch - Last Filed: 02/25/19 18:03> (1) Leukopenia Qualifiers: Leukopenia type: unspecified Qualified Code(s): D72.819 - Decreased white blood cell count, unspecified (3) UTI (urinary tract infection) Qualifiers: Urinary tract infection type: acute cystitis Hematuria presence: with hematuria Qualified Code(s): N30.01 - Acute cystitis with hematuria (4) Sepsis Qualifiers: Sepsis type: sepsis due to unspecified organism Qualified Code(s): A41.9 - Sepsis, unspecified organism (7) Cerebral palsy Qualifiers: Cerebral palsy type: unspecified type Qualified Code(s): G80.9 - Cerebral palsy, unspecified (8) GERD (gastroesophageal reflux disease) Qualifiers: Esophagitis presence: esophagitis presence not specified Qualified Code(s): K21.9 - Gastro-esophageal reflux disease without esophagitis <Jere Diana - Last Filed: 02/25/19 19:24> (2) UTI (urinary tract infection) Qualifiers: Urinary tract infection type: acute cystitis Hematuria presence: with hematuria Qualified Code(s): N30.01 - Acute cystitis with hematuria (3) Sepsis Qualifiers: Sepsis type: sepsis due to unspecified organism Qualified Code(s): A41.9 - Sepsis, unspecified organism (4) Leukopenia Qualifiers: Leukopenia type: unspecified Qualified Code(s): D72.819 - Decreased white blood cell count, unspecified (8) Depression Qualifiers: Depression Type: unspecified Qualified Code(s): F32.9 - Major depressive disorder, single episode, unspecified (9) Cerebral palsy Qualifiers: Cerebral palsy type: unspecified type Qualified Code(s): G80.9 - Cerebral palsy, unspecified (10) GERD (gastroesophageal reflux disease) Qualifiers: Esophagitis presence: esophagitis presence not specified Qualified Code(s): K21.9 - Gastro-esophageal reflux disease without esophagitis
[2019-02-25 18:54] LABS: Adenovirus Not Detected (Not Detect); Bordetella Pertussis Not Detected (Not Detect); Chlamydophila pneumoniae Not Detected (Not Detect); Coronavirus 229E Not Detected (Not Detect); Coronavirus HKU1 Not Detected (Not Detect); Coronavirus NL63 Not Detected (Not Detect); Coronavirus OC43 Not Detected (Not Detect); Human Metapneumovirus Not Detected (Not Detect); Human Rhinovirus/Enterovirus Not Detected (Not Detect); Influenza A Subtype 2009 H1 Not Detected (Not Detect); Influenza A Untypeable Not Detected (Not Detect); Influenza B Not Detected (Not Detect); Mycoplasma pneumoniae Not Detected (Not Detect); Parainfluenza Virus 1 Not Detected (Not Detect); Parainfluenza Virus 2 Not Detected (Not Detect); Parainfluenza Virus 3 Not Detected (Not Detect); Parainfluenza Virus 4 Not Detected (Not Detect); Respiratory Syncytial Virus DETECTED (Not Detect)
[2019-02-25] MEDS: cefTRIAXone 1,000 MG in Water for inj. (sterile) 10 ML IVP SCH (21:20)
[2019-02-25] MEDS: *HR* OxyCODONE/APAP 5/325 TABLET PO PRN (21:39)
[2019-02-26] MEDS: *HR* Heparin 5,000 UNIT/ML VIAL SQ SCH ×2 (02:17→08:42)
[2019-02-26] MEDS: *HR* Promethazine 25 MG/ML VIAL IVP PRN (04:06)
[2019-02-26] MEDS: *HR* Methadone 5 MG TABLET PO SCH (05:59)
[2019-02-26] MEDS: 0.9 % Sodium Chloride 1,000 ML IVC SCH (06:01)
[2019-02-26 07:26] LABS: Hematocrit 37.2 % (37.5-50.1); Hemoglobin 11.9 g/dL (12.9-16.9); Mean Corpuscular Hemoglobin 27.4 pg (28.0-33.3); Mean Corpuscular Volume 85.7 fL (83.0-100.0); Mean Platelet Volume 8.7 fL (9.4-12.4); Nucleated Red Blood Cells 0.4 /100 WBC (0); Platelet Count 328 K/mcL (140-400); Red Blood Count 4.34 M/mcL (4.19-5.50); Red Cell Distribution Width 13.8 % (11.5-14.5); White Blood Count 5.3 K/mcL (4.3-11.1)
[2019-02-26 07:36] LABS: Alanine Aminotransferase 166 Units/L (7-52); Albumin 3.5 g/dL (3.5-5.7); Albumin/Globulin Ratio 1.5 (1.1-2.2); Alkaline Phosphatase 74 Units/L (34-104); BUN/Creatinine Ratio 17 (6-26); Bilirubin,Total 0.4 mg/dL (0.3-1.0); Blood Urea Nitrogen 7 mg/dL (6-20); Calcium 8.9 mg/dL (8.6-10.3); Carbon Dioxide 22 mEq/L (23-29); Chloride 108 mEq/L (98-107); Globulin 2.4 g/dL (2.4-3.5); Glucose 119 mg/dL (70-105); Osmolality,Calculated 291 (280-300); Phosphorous 3.9 mg/dL (2.7-4.5); Potassium 4.2 mEq/L (3.5-5.1); Sodium 141 mEq/L (136-145); Total Protein 5.9 g/dL (6.4-8.9); eGFR For African Americans > 60 (> 60); eGFR For Non-African Americans > 60 (> 60)
[2019-02-26 07:51] LABS: Aspartate Amino Transferase 198 Units/L (13-39)
[2019-02-26 08:09] LABS: Eosinophils # 0.1 K/mcL (0.0-0.6); Lymphocytes # 2.1 K/mcL (0.6-4.6); Monocytes # 0.5 K/mcL (0.0-1.3); Neutrophils # 2.3 K/mcL (1.6-8.9); Platelet Estimate Normal (Normal)
[2019-02-26] MEDS: Lactobacillus 1 EACH CAP.SPRINK PO SCH (08:43)
[2019-02-26] MEDS: TESTOSTERONE TP SCH (08:44)
[2019-02-26] MEDS: Nystatin POWDER 30 GM BOTTLE TP SCH (08:44)
[2019-02-26] MEDS: *HR* OxyCODONE/APAP 5/325 TABLET PO PRN (08:48)
[2019-02-26] MEDS: Magic Mouthwash 10 ML UD Cup PO SCH (08:49)
[2019-02-26 11:33] VITALS: BP 124/86
--- NOTE | 2019-02-26 12:06 | Discharge Summary ---
- NOTES TO OUTPATIENT PROVIDER Notes to Outpatient Provider: presented w fevers and found to be RSV+. Of note, did get 6 days ceftriaxone and on discharge his LFTs were uptrending to ALT/AST 200/150, please repeat to ensure improvement. Orders not resulted at time of discharge: Pending orders 02/24/19 12:33 TSH Receptor Antibody AM 0400 Date of Encounter: 02/26/19 Time of Encounter: 11:52 Hospital course: Dear Doctors, I recently had the opportunity to care for this patient during their recent hospital stay at [facility]. Luis Benites is a 33 M w hx cerebral palsy, asthma, seizures, depression, UTIs, and remote C diff infection. He presented at the time of admission with fevers and malaise, dark urine, and myalgias. In the ED, he was tachycardic, tachypneic, and leukopenic, meeting sepsis criteria, and he appeared dehydrated. Cultures drawn, fluids given, and abx initiated. In the hospital, pt was given several days ceftriaxone for presumed UTI. His UA and UCx were both negative as were blood cultures. Subsequent eval for persistent tachycardia included TTE and CTPE which were unremarkable. RVP was positive for RSV. His abx were discontinued and he will be discharged to follow up PCP. Of note, his transaminases were uptrending on day of discharge, felt likely from ceftriaxone side effect, and he needs these rechecked in outpatient setting. Dx: RSV infection, sepsis, dehydration Pertinent tests/consults: CT abd/pelvis, CXR, TTE, RVP Follow up: PCP 1 week Tests pending: TSH receptor antibodies ordered (suspect intent was to order TSH?), TSH ordered prior to d/c Med changes: none Mental status: awake, fully oriented Code status: Lab Courier spent on discharge: 35 minutes It has been my pleasure participating in this patient's care. Please contact me with any questions or concerns regarding their hospital stay. Sincerely, Orlando Murray MD - Discharge Medications Prescriptions: Continued Chlorzoxazone 500 mg PO QID Testosterone [Androgel] 1 packet TP DAILY Docusate Sodium/Benzocaine [Enemeez Plus Mini Enema] 1 cap RC Q48H NALOXONE 4 MG Nasal [place] [Narcan] 1 spray NS AD PRN PRN Reason: OVERDOSE Doxylamine Succinate [Unisom] 50 mg PO HS Oxycodone HCl/Acetaminophen [Percocet 5-325 mg Tablet] 1 tab PO Q8H PRN PRN Reason: Pain Omeprazole [PriLOSEC] 20 mg PO DAILY Escitalopram [Lexapro] 20 mg PO DAILY Methadone 5 mg PO Q12HR Home Medications: Escitalopram [Lexapro] 20 mg PO DAILY 01/13/17 [History] Methadone 5 mg PO Q12HR 01/13/17 [History] Omeprazole [PriLOSEC] 20 mg PO DAILY 01/13/17 [History] Oxycodone HCl/Acetaminophen [Percocet 5-325 mg Tablet] 1 tab PO Q8H PRN 01/13/17 [History] Chlorzoxazone 500 mg PO QID 02/21/19 [History] Docusate Sodium/Benzocaine [Enemeez Plus Mini Enema] 1 cap RC Q48H 02/21/19 [History] Doxylamine Succinate [Unisom] 50 mg PO HS 02/21/19 [History] NALOXONE 4 MG Nasal [place] [Narcan] 1 spray NS AD PRN 02/21/19 [History] Testosterone [Androgel] 1 packet TP DAILY 02/21/19 [History] Allergies/Adverse Reactions: Allergy/AdvReac Type Severity Reaction Status Date / Time meperidine [From Demerol] Allergy Nausea Verified 02/20/19 23:36 morphine Allergy Hives Verified 02/20/19 23:36 Penicillins [PCN] Allergy Hives Verified 02/20/19 23:36 pregabalin [From Lyrica] Allergy Hives Verified 02/20/19 23:36 Sulfa (Sulfonamide Allergy Hives Verified 02/20/19 23:36 Antibiotics) Date of admission: 02/21/19 05:22 Primary care physician: Sunita Singh CNP Consults: 02/21/19 04:36 Consult to Acid Changer [CONS] Routine Reason for SW Consult: Mother is independent medical care evaluation specialist through medicare 02/21/19 11:19 Consult to Nutrition [CONS] Routine Comment: Consulting Provider: NUTRITION Reason for Dietary Consult: Tube Feed Start & Manage 02/25/19 08:36 Consult to Oncology [CONS] Routine Consulting Provider: Oncology [facility] Reason for Consult: Leukopenia with myelocytes Time Notified: 08:36 Call Completed: Yes - Constitutional Vitals: Temp Pulse Resp BP Pulse Ox 98.2 F 96 16 124/86 97 02/26/19 07:40 02/26/19 11:29 02/26/19 11:29 02/26/19 11:29 02/26/19 07:40 General appearance: Present: cachectic, A&O X 3, pleasant, no acute distress Exam: General: NAD, good eye contact, well appearing Thoracic: Normal breath sounds b/l, no wheezing or crackles Cardio: Normal S1 and S2, regular rhythm, mild tachycardia, no murmurs Abdomen: Soft, nontender, nondistended, G-tube present Extremities: Warm, well perfused. DP pulses 2+ b/l. No edema. Contractures present Skin: Intact. Does have improving tinea Neuro: Awake, fully oriented. Speech fluent - Patient Status Disposition: Home, Self-Care Condition: Fair Overall status at discharge: patient is progressing back to baseline - Ambulatory Orders Ambulatory Orders: Hepatic Panel [CHEM] Time Frame: 5 Days, Facility: [facility], Location: Lab - Discharge Instructions Follow Up With: Sunita Singh CNP [Primary Care Provider] - 03/04/19 2:30 pm (Katerin Sheffield is the OPERA SINGER the patient will be seeing due to Sunita being out of the office) - Diet and Activity Activity: resume usual activities as tolerated Diet: advance to your usual diet
--- NOTE | 2019-02-26 13:10 | Physician Discharge Referral ---
Home Health/Hosp Referral Info Transfer to: Home Health Provider in Charge Post Discharge: PCP - Diagnosis (1) Cerebral palsy Priority: Primary Status: Chronic - Respiratory Orders Smoking Cessation: Smoking cessation has been advised. For more information, call the [place] Tobacco Quit Line at 9-706-OQJC-NOW. Other Treatments: resume all previous home health orders - Transfer Medications Home Medications: Escitalopram [Lexapro] 20 mg PO DAILY 01/13/17 [History] Methadone 5 mg PO Q12HR 01/13/17 [History] Omeprazole [PriLOSEC] 20 mg PO DAILY 01/13/17 [History] Oxycodone HCl/Acetaminophen [Percocet 5-325 mg Tablet] 1 tab PO Q8H PRN 01/13/17 [History] Chlorzoxazone 500 mg PO QID 02/21/19 [History] Docusate Sodium/Benzocaine [Enemeez Plus Mini Enema] 1 cap RC Q48H 02/21/19 [History] Doxylamine Succinate [Unisom] 50 mg PO HS 02/21/19 [History] NALOXONE 4 MG Nasal [place] [Narcan] 1 spray NS AD PRN 02/21/19 [History] Testosterone [Androgel] 1 packet TP DAILY 02/21/19 [History] Allergies/Adverse Reactions: Allergy/AdvReac Type Severity Reaction Status Date / Time meperidine [From Demerol] Allergy Nausea Verified 02/20/19 23:36 morphine Allergy Hives Verified 02/20/19 23:36 Penicillins [PCN] Allergy Hives Verified 02/20/19 23:36 pregabalin [From Lyrica] Allergy Hives Verified 02/20/19 23:36 Sulfa (Sulfonamide Allergy Hives Verified 02/20/19 23:36 Antibiotics) Certification: Further, I certify that my clinical findings support that this patient is homebound (i.e. absences from home require considerable and taxing effort and are for medical reasons or sabianist services or infrequently or short duration when for other reasons) because: Homebound Reason: Leaving home requires considerable and taxing effort due to condition Attestation: My signature below is to certify that this patient is under my care and that I, or nurse practitioner, or a physician's post production assistant working with me, has a [id number] encounter with this patient.
[2019-02-26 13:29] LABS: Thyroid Stimulating Hormone 3.109 mcIU/mL (0.340-5.600)
== END 2019-02-26 13:40 | disposition home or self-care (01) | DRG 720 ==
LOC: EMEROOARM 23:28 → 2NENU 23:28 → SUATTDRO 02-21 05:22
PROVIDERS: ADMIT Internal Medicine; ATTEND Internal Medicine